=== PATIENT | female | born 1935 | race Caucasian/White ===

== ENCOUNTER 2016-06-20 10:38 | Outpatient (CLI) | payer MEDICARE, OTHER | END 2016-06-20 10:39 | disposition home or self-care (01) | DX: R53.1 Weakness (principal); E03.9 Hypothyroidism, unspecified ==

== ENCOUNTER 2017-04-11 12:17 | Outpatient (CLI) | payer MEDICARE, OTHER | END 2017-04-11 12:18 | disposition home or self-care (01) | LOC: LAB 12:17 | PROVIDERS: ATTEND Internal Medicine | DX: R93.3 Abnormal findings on diagnostic imaging of other parts of digestive tract (principal); K86.2 Cyst of pancreas | CPT/HCPCS: 36415; 82565; 84520 ==

== ENCOUNTER 2017-04-12 08:33 | Outpatient (CLI) | payer MEDICARE, OTHER ==
[2017-04-12] MEDS ORDERED: IOPAMIDOL-300 100 ML VIAL ONE (08:35)
[2017-04-12] MEDS ORDERED: IOPAMIDOL-300 50 ML VIAL ONE (08:35)
[2017-04-12] MEDS ORDERED: IOPAMIDOL-300 50 ML VIAL PO ONE (10:10)
[2017-04-12] MEDS ORDERED: IOPAMIDOL-300 100 ML VIAL IVP ONE (10:10)
--- NOTE | 2017-04-13 16:00 | CT Report ---
EXAM: CT ABDOMEN AND PELVIS EXAM DATE: 04/12/2017 10:10 AM. CLINICAL HISTORY: Pancreatic cyst COMPARISONS: None available. TECHNIQUE: Routine helical CT imaging was performed through the abdomen and pelvis. IV contrast: 100M L OF ISOVUE 300. Enteric contrast: No. Reconstructions: Coronal and sagittal. In accordance with CT protocol optimization, one or more of the following dose reduction techniques w ere utilized for this exam: automated exposure control, adjustment of mA and/or KV based on patient s ize, or use of iterative reconstructive technique. FINDINGS: There is mild motion artifact. Lung Bases: No evidence of focal infiltrate. Normal heart size. Liver: Normal. No masses. Gallbladder/Bile Ducts: The gallbladder is surgically absent. Mild common bile duct dilatation can be within normal limits status post cholecystectomy. Spleen: Normal. Pancreas: There is a focal hypodensity within the uncinate process adjacent to the ampulla. The hypod ensity measures approximately 1.3 x 0.7 cm. Differential considerations include cyst, cystic lesion, or focal pancreatic duct dilatation. There is a 1.0 x 2.5 cm hypodensity at the superior, posterior m argin of the pancreas. This may represent a portacaval lymph node. Adrenal Glands: Normal. Kidneys: The left kidney is atrophic. There is cortical irregularity of the right kidney which probab ly represents scarring. No acute renal abnormalities are seen. Peritoneal Cavity/Bowel: Stomach and small bowel demonstrate no acute abnormalities. There is distal colon diverticulosis. No evidence of diverticulitis. No intraperitoneal free air or free fluid. No en larged mesenteric or retroperitoneal lymph nodes. The appendix is well visualized and normal. Pelvic Organs: Normal. The bladder and visualized pelvic organs are within normal limits. Vasculature: There is a stented abdominal aortic aneurysm. Aneurysm measures 5.2 cm in maximal AP lauren meter. No acute vascular abnormalities are seen. Bones: No significant abnormality. Other: None. IMPRESSION: 1. Detail is somewhat limited secondary to motion artifact. 2. Small uncinate process hypodensity adjacent to the distal common bile duct may represent focal eusebio t dilatation, pancreatic cyst, or small pancreatic cystic lesion. 3. Hypodensity at the posterior margin of the pancreas may represent a portacaval lymph node. 4. Comparison with prior imaging is recommended for further evaluation of the above findings. 5. No acute gastrointestinal tract abnormalities are seen. 6. The left kidney is atrophic. There is cortical irregularity of the right kidney which probably rep resents scarring. [facility] Referring Provider Line: [phone] SITE ID: [id number]
== END 2017-04-12 08:34 | disposition home or self-care (01) ==
LOC: DI 08:33
PROVIDERS: ATTEND Internal Medicine
DX: K86.2 Cyst of pancreas (principal); N26.1 Atrophy of kidney (terminal)
CPT/HCPCS: 74177; Q9967

== ENCOUNTER 2017-05-13 07:50 | Outpatient (CLI) | payer MEDICARE, OTHER ==
[2017-05-13 13:34] LABS: BASOPHILS # (AUTO) 0.1 10^3/uL (0.0-0.1); EOSINOPHILS % (AUTO) 0.9 %; HGB - HEMOGLOBIN 13.4 g/dL (12.0-16.0); LYMPHOCYTES # (AUTO) 1.2 10^3/uL (1.5-3.5); LYMPHOCYTES % (AUTO) 21.8 %; MEAN CORPUSCULAR HEMOGLOBIN 30.7 pg (27.0-31.0); MEAN CORPUSCULAR HGB CONC 34.2 g/dL (32.0-36.0); MEAN CORPUSCULAR VOLUME 89.6 fL (81.0-99.0); MONOCYTES # (AUTO) 0.6 10^3/uL (0.0-1.0); NEUTROPHILS # (AUTO) 3.6 10^3/uL (1.5-6.6); NEUTROPHILS % (AUTO) 65.3 %; PLT - PLATELET COUNT 376 10^3/uL (130-450); RED BLOOD COUNT 4.37 10^6/uL (4.20-5.40); RED CELL DISTRIBUTION WIDTH 13.2 % (12.0-15.0); WHITE BLOOD COUNT 5.5 x10^3/uL (4.8-10.8)
[2017-05-13 13:51] LABS: ALBUMIN 4.1 g/dL (3.2-5.5); ALBUMIN/GLOBULIN RATIO 1.5 (1.0-2.2); ALKALINE PHOSPHATASE 47 IU/L (42-121); ALT ALANINE AMINOTRANSFERASE 19 IU/L (10-60); AST ASPARTATE AMINOTRANSFERASE 20 IU/L (10-42); BILIRUBIN,TOTAL 0.7 mg/dL (0.2-1.0); BUN - BLOOD UREA NITROGEN 16 mg/dL (6-20); CARBON DIOXIDE - CO2 26 mmol/L (21-32); CHLORIDE 91 mmol/L (101-111); CHOL/HDL RATIO 3.4 (<4.4); CHOLESTEROL 238 mg/dL; GFR - MDRD 53 (>89); GLUCOSE 123 mg/dL (70-100); HDL CHOLESTEROL 70 mg/dL; LDL CHOLESTEROL,CALCULATED 144 mg/dL; LDL/HDL RATIO 2.1 (<4.4); SODIUM 127 mmol/L (135-145); TOTAL PROTEIN 6.9 g/dL (6.7-8.2); VLDL CHOLESTEROL 24 mg/dL
[2017-05-13 14:59] LABS: HB2 TOTAL 14.5 g/dL; HEMOGLOBIN A1C 0.74 g/dL; HEMOGLOBIN A1C % 6.8 % (4.6-6.2)
== END 2017-05-13 07:51 | disposition home or self-care (01) ==
LOC: LAB.WCP 07:50
PROVIDERS: ATTEND Family Medicine
DX: I10 Essential (primary) hypertension (principal); E11.9 Type 2 diabetes mellitus without complications; E78.5 Hyperlipidemia, unspecified; E03.9 Hypothyroidism, unspecified
CPT/HCPCS: 36415; 80053; 80061; 82043; 83036; 83721; 84443; 85025

== ENCOUNTER 2017-05-28 11:21 | Outpatient (CLI) | payer MEDICARE, OTHER | END 2017-05-28 11:22 | disposition home or self-care (01) | LOC: DI 11:21 | PROVIDERS: ATTEND Family Medicine | DX: R00.2 Palpitations (principal); I51.7 Cardiomegaly | CPT/HCPCS: 93306 ==

== ENCOUNTER 2018-01-05 07:32 | Outpatient (CLI) | payer MEDICARE, OTHER ==
[2018-01-05 14:45] LABS: HB2 TOTAL 13.3 g/dL; HEMOGLOBIN A1C 0.62 g/dL; HEMOGLOBIN A1C % 6.4 % (4.6-6.2)
[2018-01-05 14:59] LABS: ALBUMIN/GLOBULIN RATIO 1.4 (1.0-2.2); ALKALINE PHOSPHATASE 47 IU/L (42-121); ALT ALANINE AMINOTRANSFERASE 18 IU/L (10-60); AST ASPARTATE AMINOTRANSFERASE 18 IU/L (10-42); BILIRUBIN,TOTAL 0.7 mg/dL (0.2-1.0); BUN - BLOOD UREA NITROGEN 18 mg/dL (6-20); CALCIUM 9.1 mg/dL (8.5-10.3); CARBON DIOXIDE - CO2 26 mmol/L (21-32); CHLORIDE 95 mmol/L (101-111); CHOL/HDL RATIO 3.2 (<4.4); CHOLESTEROL 225 mg/dL; CREATININE 0.9 mg/dL (0.4-1.0); GFR - MDRD 60 (>89); GLUCOSE 139 mg/dL (70-100); HDL CHOLESTEROL 71 mg/dL; LDL CHOLESTEROL,CALCULATED 124 mg/dL; LDL/HDL RATIO 1.7 (<4.4); SODIUM 131 mmol/L (135-145); TOTAL PROTEIN 6.8 g/dL (6.7-8.2); VLDL CHOLESTEROL 30 mg/dL
== END 2018-01-05 07:33 | disposition home or self-care (01) ==
LOC: LAB.WCP 07:32
PROVIDERS: ATTEND Family Medicine
DX: E11.9 Type 2 diabetes mellitus without complications (principal); G25.81 Restless legs syndrome
CPT/HCPCS: 36415; 80053; 80061; 82043; 82728; 83036; 83721

== ENCOUNTER 2018-04-06 11:42 | Outpatient (CLI) | payer MEDICARE, OTHER ==
[2018-04-06 12:10] LABS: CREATININE 0.9 mg/dL (0.4-1.0)
[2018-04-06] MEDS ORDERED: IOVERSOL 320 100 ML VIAL IVP ONE ×2 (12:13→13:01)
--- NOTE | 2018-04-06 13:46 | CT Report ---
Reason: ABDOMINAL AORTIC ANEURYSM Procedure Date: 04/06/2018 Accession Number: [id number] / [id number] Procedure: CT - Abdomen/Pelvis Angio CPT Code: FULL RESULT: EXAM: CT ANGIOGRAM ABDOMEN AND PELVIS WITH CONTRAST EXAM DATE: 04/06/2018 12:45 PM. CLINICAL HISTORY: Abdominal aortic aneurysm. COMPARISONS: ABDOMEN/PELVIS W/ 04/12/2017 10:02 AM. TECHNIQUE: Routine helical CT angiogram imaging was performed through the abdomen and pelvis in the arterial phase. IV contrast: OPTI 320 90mL. Enteric contrast: No. Reconstructions: Coronal, sagittal, and 3D MIP reconstructions. In accordance with CT protocol optimization, one or more of the following dose reduction techniques were utilized for this exam: automated exposure control, adjustment of mA and/or KV based on patient size, or use of iterative reconstructive technique. FINDINGS: Vasculature: Interval decrease of the previously stented abdominal aortic aneurysm with the maximal AP dimension of the aneurysm sac now up to 4.9 cm, previously up to 5.4 cm. The maximal dmeh-cn-usix dimension now is 4.8 cm, previously 5.2 cm. There is no evidence of active endoleak at this time. Lung Bases: Normal. Abdominal Solid Organs: Status post cholecystectomy. The liver, spleen, pancreas, adrenal glands and kidneys are normal in size and demonstrate no masses or abnormal enhancement. Peritoneal Cavity: Normal. No free fluid, free air, or acute inflammatory process. Pelvic Organs: Normal. The bladder and visualized pelvic organs are within normal limits. Bones: No significant abnormality. Other: Small fat-containing umbilical hernia. IMPRESSION: Interval decrease in size of aneurysm sac with no endoleak. [facility]
== END 2018-04-06 11:43 | disposition home or self-care (01) ==
LOC: LAB 11:42 → DI 11:43
PROVIDERS: ATTEND Family Medicine
DX: I71.4 Abdominal aortic aneurysm, without rupture (principal)
CPT/HCPCS: 36415; 74174; 82565; Q9967

== ENCOUNTER 2018-05-05 17:42 | Outpatient (CLI) | payer MEDICARE, OTHER | END 2018-05-05 17:43 | disposition short-term general hospital (02) | LOC: EMS 17:42 | PROVIDERS: ATTEND Surgery | DX: R07.9 Chest pain, unspecified (principal) | CPT/HCPCS: A0425; A0427 ==

== ENCOUNTER 2018-07-08 13:01 | Outpatient (CLI) | payer MEDICARE, OTHER ==
--- NOTE | 2018-07-08 15:17 | Ultrasound Report ---
Reason: CAROTID ARTERIAL DISEASE,PERIPHERAL ARTERY DISEASE Procedure Date: 07/08/2018 Accession Number: [id number] / [id number] Procedure: US - Carotid Doppler Complete CPT Code: FULL RESULT: EXAM: BILATERAL CAROTID AND VERTEBRAL ARTERY DUPLEX DOPPLER ULTRASOUND. EXAM DATE: 07/08/2018 01:16 PM CLINICAL HISTORY: Carotid arterial disease, peripheral artery disease. COMPARISON: None. TECHNIQUE: Grayscale imaging, color Doppler, and duplex spectral Doppler were used to evaluate the carotid and vertebral arteries bilaterally. Static images were obtained. FINDINGS: Visually, there is mild intimal thickening in both carotid systems with minimal plaque at the bifurcations. No significant plaque is identified in the right or left common or internal carotid arteries. Normal antegrade flow is present in bilateral vertebral arteries. VELOCITIES (cm/sec): Right CCA mid: PSV 95.7 cm/sec CCA dist: PSV 79.7 cm/sec ICA prox: PSV 51.2 cm/sec, EDV 15 cm/sec ICA mid: PSV 44.5 cm/sec, EDV 14 cm/sec ICA dist: PSV 49 cm/sec, EDV 14 cm/sec ECA: PSV 58 cm/sec Vert: PSV 64 cm/sec ICA/CCA: 0.6 Left CCA mid: PSV 90.7 cm/sec CCA dist: PSV 80.1 cm/sec ICA prox: PSV 53.7 cm/sec, EDV 18 cm/sec ICA mid: PSV 48.6 cm/sec, EDV 14 cm/sec ICA dist: PSV 43 cm/sec, EDV 12 cm/sec ECA: PSV 70 cm/sec Vert: PSV 45 cm/sec ICA/CCA: 0.7 ICA diameter stenosis: Right: <50% by velocity and <70% by NASCET criteria. Left: <50% by velocity and <70% by NASCET criteria. IMPRESSION: 1. No significant bilateral carotid artery plaquing. 2. In the right carotid artery there are no elevated carotid artery velocities to suggest hemodynamically significant stenosis. 3. In the left carotid artery there are no elevated carotid artery velocities to suggest hemodynamically significant stenosis. 4. Normal antegrade flow is present in bilateral vertebral arteries. General Recommendations: Stenosis =50% ICA - Follow-up ultrasound 6-12 months Stenosis <50% ICA - High Risk Patient with plaque - Follow-up ultrasound 1-2 years Normal Study but High Risk Patient - Follow-up ultrasound 3-5 years Management recommendations and diagnostic criteria are based on current IAC endorsed standards in Carotid Artery Stenosis: Grayscale and Doppler Ultrasound Diagnosis. Validated velocity measurements with angiographic measurements and velocity criteria are extrapolated from diameter data as defined by the Society of Radiologists in Ultrasound Consensus Conference Radiology 2003; 229;340-346. [facility]
--- NOTE | 2018-07-08 15:36 | Ultrasound Report ---
Reason: CAROTID ARTERIAL DISEASE,PERIPHERAL ARTERY DISEASE Procedure Date: 07/08/2018 Accession Number: [id number] / [id number] Procedure: US - Duplex Lwr Ext Arterial Bilat CPT Code: FULL RESULT: EXAM: Bilateral Lower Extremity Arterial Doppler Ultrasound EXAM DATE: 07/08/2018 02:32 PM. CLINICAL HISTORY: Carotid arterial disease, peripheral artery disease. COMPARISON: None. TECHNIQUE: Real-time sonographic vascular imaging was performed by the soubrette, utilizing color-flow, Doppler flow, and spectral analysis. Multiple advertising sales representative static images were saved for review. FINDINGS: Visually, there is focal echogenic and hypoechoic plaque occupying approximately 50% of the lumen in the right common femoral artery. Focal atherosclerotic disease is also seen in the right distal SFA, visually less than 50% narrowing at the interrogated segments. Focal echogenic atherosclerotic disease is seen at the takeoff of the left SFA and within the left FRIT MIXER AND BURNER, less than 50% visually. Brisk arterial upstrokes are preserved throughout the interrogated right lower extremity and left lower extremity. Velocities: Right Lower Extremity: FRIT MIXER AND BURNER: PSV 107 cm/sec. PSFA: PSV 103 cm/sec. MSFA: PSV 55 cm/sec. DSFA: PSV 82 cm/sec. PFA: PSV 96.5 cm/sec. POP: PSV 34 cm/sec. TEAGAN: PSV 65 cm/sec. STRAP BUCKLER MACHINE: PSV 40 cm/sec. ROULA: PSV 48 cm/sec. DPA: PSV 80 cm/sec. Left Lower Extremity: FRIT MIXER AND BURNER: PSV 57 cm/sec. PSFA: PSV 52 cm/sec. MSFA: PSV 64 cm/sec. DSFA: PSV 75 cm/sec. PFA: PSV 30 cm/sec. POP: PSV 40 cm/sec. TEAGAN: PSV 56 cm/sec. STRAP BUCKLER MACHINE: PSV 23 cm/sec. ROULA: PSV 36 cm/sec. DPA: PSV 69 cm/sec. IMPRESSION: Peripheral arterial disease with preserved 3-vessel flow to both ankles and good vascular supply to the dorsalis pedis arteries. No evidence of tardus parvus flow. [facility]
== END 2018-07-08 13:02 | disposition home or self-care (01) ==
LOC: DI 13:01
PROVIDERS: ATTEND Family Medicine
DX: I73.9 Peripheral vascular disease, unspecified (principal); I77.9 Disorder of arteries and arterioles, unspecified
CPT/HCPCS: 93880; 93925

== ENCOUNTER 2018-12-11 08:00 | Outpatient (CLI) | payer MEDICARE, OTHER | END 2018-12-11 08:01 | disposition home or self-care (01) | LOC: LAB.WCP 08:00 | PROVIDERS: ATTEND Family Medicine | DX: R35.0 Frequency of micturition (principal) | CPT/HCPCS: 81002 ==

== ENCOUNTER 2019-03-11 08:00 | Outpatient (CLI) | payer MEDICARE, OTHER | END 2019-03-11 23:59 | disposition home or self-care (01) | LOC: LAB.WCP 08:00 | PROVIDERS: ATTEND Family Medicine | DX: R30.0 Dysuria (principal) | CPT/HCPCS: 81002 ==

== ENCOUNTER 2019-03-12 08:00 | Outpatient (CLI) | payer MEDICARE, OTHER | END 2019-03-12 23:59 | disposition home or self-care (01) | LOC: LAB.R 08:00 | PROVIDERS: ATTEND Family Medicine | DX: R30.0 Dysuria (principal) | CPT/HCPCS: 87086; 87181 ==

== ENCOUNTER → 2019-03-31 | Outpatient (CLI) | payer MEDICARE, OTHER ==
[2019-03-31 18:56] LABS: BASOPHILS # (AUTO) 0.1 10^3/uL (0.0-0.1); BASOPHILS % (AUTO) 1.2 %; EOSINOPHILS % (AUTO) 0.6 %; HGB - HEMOGLOBIN 13.9 g/dL (12.0-16.0); LYMPHOCYTES # (AUTO) 1.3 10^3/uL (1.5-3.5); LYMPHOCYTES % (AUTO) 19.3 %; MEAN CORPUSCULAR HGB CONC 31.7 g/dL (32.0-36.0); MEAN CORPUSCULAR VOLUME 91.5 fL (81.0-99.0); MEAN PLATELET VOLUME 9.7 fL (7.9-10.8); MONOCYTES # (AUTO) 0.6 10^3/uL (0.0-1.0); MONOCYTES % (AUTO) 8.7 %; NEUTROPHILS # (AUTO) 4.6 10^3/uL (1.5-6.6); NEUTROPHILS % (AUTO) 69.7 %; PLT - PLATELET COUNT 511 10^3/uL (130-450); RED CELL DISTRIBUTION WIDTH 13.7 % (12.0-15.0); WHITE BLOOD COUNT 6.5 x10^3/uL (4.8-10.8)
[2019-03-31 19:14] LABS: ALBUMIN 4.4 g/dL (3.2-5.5); ALBUMIN/GLOBULIN RATIO 1.5 (1.0-2.2); ALKALINE PHOSPHATASE 47 IU/L (42-121); ALT ALANINE AMINOTRANSFERASE 20 IU/L (10-60); AST ASPARTATE AMINOTRANSFERASE 20 IU/L (10-42); BILIRUBIN,TOTAL 0.5 mg/dL (0.2-1.0); BUN - BLOOD UREA NITROGEN 16 mg/dL (6-20); CARBON DIOXIDE - CO2 24 mmol/L (21-32); CHLORIDE 97 mmol/L (101-111); CHOL/HDL RATIO 3.1 (<4.4); CHOLESTEROL 254 mg/dL; CREATININE 0.9 mg/dL (0.4-1.0); GFR - MDRD 60 (>89); GLUCOSE 112 mg/dL (70-100); HDL CHOLESTEROL 81 mg/dL; LDL CHOLESTEROL,CALCULATED 129 mg/dL; LDL/HDL RATIO 1.6 (<4.4); LIPASE 57 U/L (22-51); SODIUM 133 mmol/L (135-145); TOTAL PROTEIN 7.4 g/dL (6.7-8.2); VLDL CHOLESTEROL 44 mg/dL
[2019-03-31 20:09] LABS: HB2 TOTAL 14.1 g/dL; HEMOGLOBIN A1C 0.73 g/dL; HEMOGLOBIN A1C % 6.9 % (4.6-6.2)
== END ==
LOC: LAB.WCP 10:28
PROVIDERS: ATTEND Family Medicine
DX: K86.2 Cyst of pancreas (principal); E11.9 Type 2 diabetes mellitus without complications
CPT/HCPCS: 36415; 80053; 80061; 83036; 83690; 83721; 84443; 85025

== ENCOUNTER 2019-04-19 10:38 | Outpatient (CLI) | payer MEDICARE, OTHER ==
[2019-04-19] MEDS ORDERED: IOVERSOL 320 100 ML VIAL IVP ONE ×2 (10:52→12:08)
--- NOTE | 2019-04-20 05:18 | CT Report ---
Reason: PANCREATIC CYST Procedure Date: 04/19/2019 Accession Number: [id number] / [id number] Procedure: CT - ABDOMEN W/WO CPT Code: Final Report FULL RESULT: EXAM: CT ABDOMEN WITHOUT AND WITH CONTRAST EXAM DATE: 04/19/2019 11:46 AM. HISTORY: PANCREATIC CYST. COMPARISON: ABDOMEN/PELVIS ANGIO 04/06/2018 12:05 PM ABDOMEN/PELVIS W/ 04/12/2017 10:02 AM. TECHNIQUE: Routine helical CT imaging was performed through the abdomen before and after administration of IV contrast: OPTI 320 100ML. Enteric contrast: No. Reconstruction: Coronal and sagittal. In accordance with CT protocol optimization, one or more of the following dose reduction techniques were utilized for this exam: automated exposure control, adjustment of mA and/or KV based on patient size, or use of iterative reconstructive technique. FINDINGS: Lung Bases: Unremarkable. Liver: Normal. No masses. Gallbladder/Bile Ducts: Cholecystectomy. CBD measures up to 12 mm. Spleen: Normal. Pancreas: Nonenhancing cystic structure along the posterior aspect of pancreatic head measuring up to approximately 2 cm. No additional pancreatic lesions identified. No ductal obstruction. Adrenal Glands: Normal. Kidneys: Lobulated kidneys with scarring, most prominent at left lower pole. No hydronephrosis. Peritoneal Cavity/Bowel: Small hiatal hernia. Colonic diverticula. No free fluid, free air or adenopathy. No masses or acute inflammatory process in the visualized abdomen. Visualized portion of appendix is unremarkable. Vasculature: Atherosclerotic vascular disease with infrarenal abdominal aortic aneurysm status post endovascular repair. Aneurysm sac measures up to 4.6 cm on coronal images, similar to prior. Bones: No acute osseous abnormality. Other: None. IMPRESSION: 1. Pancreatic head cystic structure measuring up to 2 cm, similar compared to prior imaging. This could be pancreatic cyst or cystic neoplasm. Follow-up MRI can be performed to reassess. 2. Cholecystectomy with stable biliary dilation. 3. Atherosclerotic vascular disease with infrarenal abdominal aortic aneurysm status post endovascular repair. No interval growth of aneurysm sac. 4. Atrophic kidneys with scarring, more prominent on left than right. [facility]
== END 2019-04-19 10:39 | disposition home or self-care (01) ==
LOC: DI 10:38
PROVIDERS: ATTEND Family Medicine
DX: K86.2 Cyst of pancreas (principal); I71.4 Abdominal aortic aneurysm, without rupture; N26.1 Atrophy of kidney (terminal); Z90.49 Acquired absence of other specified parts of digestive tract
CPT/HCPCS: 74170; Q9967

== ENCOUNTER 2019-07-27 10:15 | Outpatient (CLI) | payer MEDICARE, OTHER | END 2019-07-27 10:16 | disposition critical access hospital (66) | LOC: EMS 10:15 | PROVIDERS: ATTEND Surgery | DX: R42 Dizziness and giddiness (principal); R61 Generalized hyperhidrosis | CPT/HCPCS: A0425; A0429 ==

== ENCOUNTER 2019-07-27 10:34 | Emergency (ER) | payer MEDICARE, OTHER ==
--- NOTE | 2019-07-27 11:31 | ED Physician Documentation ---
History of Present Illness - Stated complaint Stated Complaint: SHAKEY/NAUSEA - Chief complaint Chief Complaint: Ext Problem - History obtained from History obtained from: Patient - History of Present Illness Timing: Last night - Additonal information Additional information: Previously well 83-year-old female on Eliquis has developed some swelling to the veins in her right leg some heaviness to her legs some lightheadedness and nausea. She spent a good part of the day yesterday out in the garden, probably longer than she should have. She is uncertain about her hydration status. She has had blood clots in her lungs previously. She has an aortic stent. Review of Systems Constitutional: reports: Fatigue. denies: Fever, Chills, Myalgias Eyes: denies: Decreased vision Ears: denies: Ear pain Nose: denies: Rhinorrhea / runny nose, Congestion Throat: denies: Sore throat Cardiac: denies: Chest pain / pressure, Palpitations Respiratory: denies: Dyspnea, Cough GI: reports: Nausea. denies: Abdominal Pain, Vomiting : denies: Dysuria, Frequency Skin: denies: Rash Musculoskeletal: reports: Extremity pain, Extremity swelling. denies: Neck pain, Back pain Neurologic: reports: Generalized weakness. denies: Focal weakness, Numbness PD PAST MEDICAL HISTORY - Past Medical History Past Medical History: Yes Cardiovascular: Hypertension, Pulmonary embolism, [place] Endocrine/Autoimmune: Type 2 diabetes, HyPOthyroidism GI: GERD - Past Surgical History Past Surgical History: Yes General: Cholecystectomy Cardiovascular: Coronary stent - Present Medications Home Medications: Ambulatory Orders Medication Instructions Recorded Confirmed Sulfamethoxazole/Trimethoprim 1 each PO BID #14 tablet 07/27/19 [Sulfamethoxazole-Tmp Ds Tablet] - Allergies Allergies/Adverse Reactions: Allergies Allergy/AdvReac Type Severity Reaction Status Date / Time No Known Drug Allergies Allergy Verified 07/27/19 10:44 - Social History Does the pt smoke?: No Smoking Status: Never smoker Does the pt drink ETOH?: No Does the pt have substance abuse?: No - Immunizations Immunizations are current?: Yes PD ED PE NORMAL - Vitals Vital signs reviewed: Yes (hypertensive) - General General: Alert and oriented X 3, No acute distress, Well developed/nourished - HEENT HEENT: Atraumatic, PERRL, EOMI - Neck Neck: Supple, no meningeal sign - Cardiac Cardiac: RRR, No murmur - Respiratory Respiratory: No respiratory distress, Clear bilaterally - Abdomen Abdomen: Soft, Non tender - Back Back: No CVA TTP, No spinal TTP - Derm Derm: Normal color, Warm and dry, No rash - Extremities Extremities: No deformity, No edema, Other (There is no right calf tenderness there are distended superficial veins in the calf. There is no edema the right leg is slightly larger than the left leg.) - Neuro Neuro: Alert and oriented X 3, psychotherapist social worker 2-12 intact, No motor deficit, No sensory deficit, Normal speech Eye Opening: Spontaneous Motor: Obeys Commands Verbal: Oriented GCS Score: 15 - Psych Psych: Normal mood, Normal affect Results - Vitals Vitals: Vital Signs - 24 hr 07/27/19 07/27/19 07/27/19 10:44 11:49 13:32 Temperature 36.9 C Heart Rate 94 74 78 Respiratory 16 18 15 Rate Blood Pressure 193/89 H 144/62 H 155/68 H O2 Saturation 96 97 97 Oxygen O2 Source Room air - Labs Labs: Laboratory Tests 07/27/19 07/27/19 07/27/19 11:40 11:40 11:40 WBC 7.2 RBC 4.71 Hgb 14.3 Hct 42.8 MCV 90.9 MCH 30.4 MCHC 33.4 RDW 13.3 Plt Count 411 MPV 9.2 Neut # (Auto) 5.7 Lymph # (Auto) 0.9 L Saunders # (Auto) 0.5 Eos # (Auto) 0.0 Baso # (Auto) 0.1 Absolute Nucleated RBC 0.00 Nucleated RBC % 0.0 Sodium 132 L Potassium 4.7 Chloride 99 L Carbon Dioxide 24 Anion Gap 9.0 BUN 22 H Creatinine 1.0 Estimated GFR (MDRD) 53 L Glucose 128 H Lactic Acid 1.4 Calcium 9.2 Total Bilirubin 0.8 AST 18 ALT 21 Alkaline Phosphatase 52 Total Protein 7.4 Albumin 4.1 Globulin 3.3 Albumin/Globulin Ratio 1.2 Lipase 50 Urine Color Urine Clarity Urine pH Ur Specific Dana Urine Protein Urine Glucose (UA) Urine Ketones Urine Occult Blood Urine Nitrite Urine Bilirubin Urine Urobilinogen Ur Leukocyte Esterase Urine RBC Urine WBC Ur Squamous Epith Cells Urine Bacteria Ur Microscopic Review Urine Culture Comments 07/27/19 11:55 WBC RBC Hgb Hct MCV MCH MCHC RDW Plt Count MPV Neut # (Auto) Lymph # (Auto) Saunders # (Auto) Eos # (Auto) Baso # (Auto) Absolute Nucleated RBC Nucleated RBC % Sodium Potassium Chloride Carbon Dioxide Anion Gap BUN Creatinine Estimated GFR (MDRD) Glucose Lactic Acid Calcium Total Bilirubin AST ALT Alkaline Phosphatase Total Protein Albumin Globulin Albumin/Globulin Ratio Lipase Urine Color YELLOW Urine Clarity HAZY Urine pH 6.0 Ur Specific Dana 1.010 Urine Protein NEGATIVE Urine Glucose (UA) NEGATIVE Urine Ketones NEGATIVE Urine Occult Blood NEGATIVE Urine Nitrite NEGATIVE Urine Bilirubin NEGATIVE Urine Urobilinogen 0.2 (NORMAL) Ur Leukocyte Esterase LARGE H Urine RBC 0-5 Urine WBC >25 H Ur Squamous Epith Cells RARE Squamous Urine Bacteria Few Ur Microscopic Review INDICATED Urine Culture Comments INDICATED - Rads (name of study) duplex veins R Radiology: Prelim report reviewed (Impression: No evidence for deep venous thrombosis.), EMP read indepedently, See rad report Procedures - IVC sono (time) 1120 Bedside IVC sono: IVC measures (cm) (1.49), IVC collapsed c insp (cm) (complete), Dehydration (minimal est 500ml deficit) PD MEDICAL DECISION MAKING - ED course Complexity details: reviewed old records, reviewed results, re-evaluated patient, considered differential, d/w patient ED course: 83-year-old male on Eliquis with a history of pulmonary embolism comes to the emergency department today feeling lightheaded shaky and with distended leg veins on the right. She spent the day out in the garden yesterday and is found to be mildly dehydrated on interrogation the inferior vena cava. She is provided intravenous hydration and urinary tract infection is discovered she is also given intravenous ceftriaxone and she has no evidence of deep venous thrombosis on duplex ultrasound exam. Departure - Departure Disposition: 01 Home, Self Care Clinical Impression: Dehydration Urinary tract infection Qualifiers: Urinary tract infection type: acute cystitis Hematuria presence: without hematuria Qualified Code(s): N30.00 - Acute cystitis without hematuria Condition: Stable Instructions: ED UTI Cystitis Female, ED Dehydration Follow-Up: Kirstie Powers DO [Primary Care Provider] - Prescriptions: Sulfamethoxazole/Trimethoprim [Sulfamethoxazole-Tmp Ds Tablet] 1 each PO BID #14 tablet
[2019-07-27] MEDS: SODIUM CHLORIDE 0.9% 500 ML IV ONE (11:40)
[2019-07-27 11:46] LABS: BASOPHILS # (AUTO) 0.1 10^3/uL (0.0-0.1); BASOPHILS % (AUTO) 0.8 %; EOSINOPHILS % (AUTO) 0.4 %; HGB - HEMOGLOBIN 14.3 g/dL (12.0-16.0); LYMPHOCYTES # (AUTO) 0.9 10^3/uL (1.5-3.5); MEAN CORPUSCULAR HEMOGLOBIN 30.4 pg (27.0-31.0); MEAN CORPUSCULAR HGB CONC 33.4 g/dL (32.0-36.0); MEAN CORPUSCULAR VOLUME 90.9 fL (81.0-99.0); MEAN PLATELET VOLUME 9.2 fL (7.9-10.8); MONOCYTES # (AUTO) 0.5 10^3/uL (0.0-1.0); MONOCYTES % (AUTO) 7.3 %; NEUTROPHILS # (AUTO) 5.7 10^3/uL (1.5-6.6); NEUTROPHILS % (AUTO) 78.9 %; PLT - PLATELET COUNT 411 10^3/uL (130-450); RED BLOOD COUNT 4.71 10^6/uL (4.20-5.40); RED CELL DISTRIBUTION WIDTH 13.3 % (12.0-15.0); WHITE BLOOD COUNT 7.2 x10^3/uL (4.8-10.8)
[2019-07-27 12:00] LABS: ALBUMIN 4.1 g/dL (3.2-5.5); ALBUMIN/GLOBULIN RATIO 1.2 (1.0-2.2); BILIRUBIN,TOTAL 0.8 mg/dL (0.2-1.0); CALCIUM 9.2 mg/dL (8.5-10.3); TOTAL PROTEIN 7.4 g/dL (6.7-8.2)
[2019-07-27 12:06] LABS: BILIRUBIN,URINE NEGATIVE (NEGATIVE); GLUCOSE, URINE (UA) NEGATIVE (NEGATIVE); KETONES,URINE (UA) NEGATIVE (NEGATIVE); LEUKOCYTE ESTERASE, URINE LARGE (NEGATIVE); NITRITE,URINE NEGATIVE (NEGATIVE); OCCULT BLOOD,URINE NEGATIVE (NEGATIVE); PROTEIN,URINE NEGATIVE (NEGATIVE); UROBILINOGEN,URINE 0.2 (NORMAL) E.U./dL (NORMAL)
[2019-07-27 12:07] LABS: CLARITY,URINE HAZY (CLEAR)
[2019-07-27 12:20] LABS: BACTERIA,URINE Few /HPF (None Seen); RBC,URINE 0-5 /HPF (0-5); SQUAMOUS EPITHELIAL CELL,UR RARE Squamous (<= Few)
[2019-07-27] MEDS: cefTRIAXone 1 GM in SODIUM CHLORIDE 0.9% MINIBAG 100 ML IV STA (12:52)
--- NOTE | 2019-07-27 12:56 | Ultrasound Report ---
Reason: heavy legs buldging veins. Procedure Date: 07/27/2019 Accession Number: [id number] / [id number] Procedure: US - Duplex Ext Veins Right CPT Code: Final Report FULL RESULT: EXAM: RIGHT LOWER EXTREMITY VENOUS ULTRASOUND EXAM DATE: 07/27/2019 12:32 PM. CLINICAL HISTORY: Heavy legs bulging veins. COMPARISON: None. TECHNIQUE: Real-time sonographic vascular imaging was performed by the investment sales assistant through the lower extremity utilizing both color-flow and Doppler spectral analysis. Multiple civil rights representative static images were saved for review. FINDINGS: Common Femoral Vein (CFV): Normal. CFV-GSV Junction: Normal. Profunda Femoral Vein (PFV): Normal. Femoral Vein (FV) Prox: Normal. Femoral Vein (FV) Mid: Normal. Femoral Vein (FV) Dist: Normal. Popliteal Vein: Normal. Posterior Tibial Veins: Normal. Peroneal Veins: Normal. Contralateral Side CFV: Normal. Other: None. IMPRESSION: No evidence for deep venous thrombosis. [facility]
[2019-07-27 14:03] VITALS: BP 148/72
== END 2019-07-27 14:05 | disposition home or self-care (01) ==
LOC: EDUNIT# → ED 10:34
DX: E86.0 Dehydration (principal); N30.00 Acute cystitis without hematuria; I87.8 Other specified disorders of veins; Z86.711 Personal history of pulmonary embolism; Z79.01 Long term (current) use of anticoagulants; I10 Essential (primary) hypertension; E11.9 Type 2 diabetes mellitus without complications; Z95.5 Presence of coronary angioplasty implant and graft
CPT/HCPCS: 36415; 80053; 81001; 81003; 83605; 83690; 85025; 87086; 87181; 96365; 99284

== ENCOUNTER 2019-10-26 11:41 | Outpatient (CLI) | payer MEDICARE, OTHER ==
[2019-10-26 18:39] LABS: BASOPHILS # (AUTO) 0.1 10^3/uL (0.0-0.1); BASOPHILS % (AUTO) 0.9 %; EOSINOPHILS % (AUTO) 0.5 %; HGB - HEMOGLOBIN 13.3 g/dL (12.0-16.0); LYMPHOCYTES # (AUTO) 1.4 10^3/uL (1.5-3.5); LYMPHOCYTES % (AUTO) 21.5 %; MEAN CORPUSCULAR HEMOGLOBIN 29.1 pg (27.0-31.0); MEAN CORPUSCULAR HGB CONC 31.5 g/dL (32.0-36.0); MEAN CORPUSCULAR VOLUME 92.3 fL (81.0-99.0); MEAN PLATELET VOLUME 9.6 fL (7.9-10.8); MONOCYTES # (AUTO) 0.6 10^3/uL (0.0-1.0); MONOCYTES % (AUTO) 9.7 %; NEUTROPHILS # (AUTO) 4.3 10^3/uL (1.5-6.6); NEUTROPHILS % (AUTO) 67.1 %; PLT - PLATELET COUNT 427 10^3/uL (130-450); RED BLOOD COUNT 4.57 10^6/uL (4.20-5.40); RED CELL DISTRIBUTION WIDTH 13.7 % (12.0-15.0); WHITE BLOOD COUNT 6.4 x10^3/uL (4.8-10.8)
[2019-10-26 19:02] LABS: ALBUMIN 4.3 g/dL (3.2-5.5); ALBUMIN/GLOBULIN RATIO 1.4 (1.0-2.2); ALKALINE PHOSPHATASE 45 IU/L (42-121); ALT ALANINE AMINOTRANSFERASE 20 IU/L (10-60); AST ASPARTATE AMINOTRANSFERASE 18 IU/L (10-42); BILIRUBIN,TOTAL 0.4 mg/dL (0.2-1.0); BUN - BLOOD UREA NITROGEN 14 mg/dL (6-20); CALCIUM 9.4 mg/dL (8.5-10.3); CARBON DIOXIDE - CO2 26 mmol/L (21-32); CHLORIDE 95 mmol/L (101-111); CHOL/HDL RATIO 3.1 (<4.4); CHOLESTEROL 258 mg/dL; CREATININE 0.9 mg/dL (0.4-1.0); GLUCOSE 116 mg/dL (70-100); HDL CHOLESTEROL 84 mg/dL; LDL CHOLESTEROL,CALCULATED 153 mg/dL; LDL/HDL RATIO 1.8 (<4.4); SODIUM 128 mmol/L (135-145); TOTAL PROTEIN 7.4 g/dL (6.7-8.2); VLDL CHOLESTEROL 21 mg/dL
[2019-10-26 19:32] LABS: HEMOGLOBIN A1C 0.68 g/dL; HEMOGLOBIN A1C % 6.6 % (4.6-6.2)
== END 2019-10-26 23:59 | disposition home or self-care (01) ==
LOC: LAB.WCP 11:41
PROVIDERS: ATTEND Family Medicine
DX: E11.9 Type 2 diabetes mellitus without complications (principal)
CPT/HCPCS: 36415; 80053; 80061; 82607; 83036; 83721; 85025

== ENCOUNTER 2020-02-28 08:32 | Outpatient (CLI) | payer MEDICARE, OTHER ==
[2020-02-28 12:54] LABS: BASOPHILS # (AUTO) 0.1 10^3/uL (0.0-0.1); BASOPHILS % (AUTO) 1.1 %; EOSINOPHILS # (AUTO) 0.1 10^3/uL (0.0-0.7); EOSINOPHILS % (AUTO) 0.8 %; HGB - HEMOGLOBIN 13.6 g/dL (12.0-16.0); LYMPHOCYTES # (AUTO) 1.2 10^3/uL (1.5-3.5); MEAN CORPUSCULAR HEMOGLOBIN 29.1 pg (27.0-31.0); MEAN CORPUSCULAR HGB CONC 31.7 g/dL (32.0-36.0); MEAN CORPUSCULAR VOLUME 91.7 fL (81.0-99.0); MEAN PLATELET VOLUME 9.8 fL (7.9-10.8); MONOCYTES # (AUTO) 0.7 10^3/uL (0.0-1.0); MONOCYTES % (AUTO) 9.6 %; NEUTROPHILS # (AUTO) 5.2 10^3/uL (1.5-6.6); PLT - PLATELET COUNT 425 10^3/uL (130-450); RED BLOOD COUNT 4.68 10^6/uL (4.20-5.40); RED CELL DISTRIBUTION WIDTH 13.8 % (12.0-15.0); WHITE BLOOD COUNT 7.3 x10^3/uL (4.8-10.8)
[2020-02-28 13:08] LABS: ALBUMIN 4.3 g/dL (3.2-5.5); ALBUMIN/GLOBULIN RATIO 1.5 (1.0-2.2); BILIRUBIN,TOTAL 0.6 mg/dL (0.2-1.0); CALCIUM 9.1 mg/dL (8.5-10.3); TOTAL PROTEIN 7.1 g/dL (6.7-8.2)
[2020-02-28 14:50] LABS: HEMOGLOBIN A1c% 6.6 % (4.27-6.07)
== END 2020-02-28 23:59 | disposition home or self-care (01) ==
LOC: LAB.WCP 08:32
PROVIDERS: ATTEND Family Medicine
DX: E87.1 Hypo-osmolality and hyponatremia (principal); E11.9 Type 2 diabetes mellitus without complications
CPT/HCPCS: 36415; 80053; 83036; 83930; 83935; 84300; 84443; 85025

== ENCOUNTER 2020-03-26 09:25 | Outpatient (CLI) | payer MEDICARE, OTHER ==
--- NOTE | 2020-03-26 15:45 | Ultrasound Report ---
PROCEDURE: Retroperitoneal Limited INDICATIONS: AAA 6.2 TECHNIQUE: Real-time scanning was performed of the abdominal aorta, with image documentation. COMPARISON: CTA 04/19/2019. FINDINGS: Technically difficult exam due to acoustic windows and body habitus. Aorta: Post aortoiliac stent graft repair. The stents appear patent. Proximal aorta measures 2.6 cm. Mid aorta measures 3.8 x 3.5 cm. Distal aorta measures 6.8 x 5 cm. Iliac arteries: Right ANGELA measures 1.8 x 1.5 cm. Left ANGELA measures 2 x 1.9 cm. IMPRESSION: Post aortoiliac stent graft repair. Stent appears patent. Distal aortic aneurysm sac measures up to 6.8 cm. Reviewed by: Tim Garcia MD on 03/26/2020 2:44 PM [place] Approved by: Tmi Garcia MD on 03/26/2020 2:44 PM [facility] Station ID: [id number]
== END 2020-03-26 09:26 | disposition home or self-care (01) ==
LOC: DI 09:25
PROVIDERS: ATTEND Nurse Practitioner
DX: I71.4 Abdominal aortic aneurysm, without rupture (principal)

== ENCOUNTER 2020-06-10 18:14 | Outpatient (CLI) | payer MEDICARE, OTHER | END 2020-06-10 18:15 | disposition critical access hospital (66) | LOC: EMS 18:14 | PROVIDERS: ATTEND Emergency Medicine | DX: R42 Dizziness and giddiness (principal); R53.1 Weakness; R55 Syncope and collapse | CPT/HCPCS: A0425; A0429 ==

== ENCOUNTER 2020-06-10 18:30 | Emergency (ER) | payer MEDICARE, OTHER ==
--- NOTE | 2020-06-10 19:12 | ED Physician Documentation ---
History of Present Illness - Stated complaint Stated Complaint: dizziness - Chief complaint Chief Complaint: Neuro - History obtained from History obtained from: Patient - History of Present Illness Timing: Enter time (15:00), Today Pain level max: 0 Pain level now: 0 Improved by: rest Worsened by: standing, ambulating - Additonal information Additional information: At approximately 3 PM today, as she was entering her house after raking leaves in her yard, patient had rapid onset lightheadedness, "that feeling like when you're going to pass out", generalized weakness. She says she has had similar symptoms in the past but milder and self-resolved and thus hasn't seen anyone for these symptoms before tonight. Review of Systems Constitutional: denies: Fever, Chills, Sweats Cardiac: reports: Reviewed and negative Respiratory: reports: Reviewed and negative GI: reports: Reviewed and negative : denies: Dysuria, Frequency Neurologic: reports: Generalized weakness (episodic (with standing, ambulating)). denies: Focal weakness, Numbness, Syncope, Headache PD PAST MEDICAL HISTORY - Past Medical History Past Medical History: Yes Cardiovascular: Hypertension, Pulmonary embolism, [place] Endocrine/Autoimmune: Type 2 diabetes, HyPOthyroidism GI: GERD - Past Surgical History Past Surgical History: Yes General: Cholecystectomy Cardiovascular: Coronary stent - Present Medications Home Medications: Ambulatory Orders Medication Instructions Recorded Confirmed Apixaban [Eliquis] 5 mg PO DAILY 06/10/20 06/10/20 Levothyroxine [Synthroid] 75 mcg PO DAILY 06/10/20 06/10/20 Losartan [Cozaar] 100 mg PO DAILY 06/10/20 06/10/20 Pramipexole [Mirapex] 0.25 mg PO TID 06/10/20 06/10/20 metFORMIN [Glucophage] 500 mg PO BID 06/10/20 06/10/20 - Allergies Allergies/Adverse Reactions: Allergies Allergy/AdvReac Type Severity Reaction Status Date / Time gluten Allergy Unknown Verified 06/10/20 18:46 lactose Allergy Unknown Verified 06/10/20 18:46 lisinopril Allergy Unknown Verified 06/10/20 18:46 Qlmsdwe-Zbm-Xol Reductase Allergy Unknown Verified 06/10/20 18:46 Inhibitor wheat Allergy Unknown Verified 06/10/20 18:46 - Social History Does the pt smoke?: No Smoking Status: Never smoker Does the pt drink ETOH?: No ETOH Use: Wine Does the pt have substance abuse?: Yes Substance Use and Type: Marijuana, CBD oil / Products - Immunizations Immunizations are current?: Yes - POLST Patient has POLST: No PD ED PE NORMAL - Vitals Vital signs reviewed: Yes - General General: Alert and oriented X 3, No acute distress, Well developed/nourished - HEENT HEENT: PERRL, EOMI, Moist mucous membranes - Neck Neck: Supple, no meningeal sign, No bruit - Cardiac Cardiac: RRR, No murmur, No gallop, No rub - Respiratory Respiratory: No respiratory distress, Clear bilaterally - Abdomen Abdomen: Soft, Non tender, Non distended - Back Back: No CVA TTP - Derm Derm: Normal color, Warm and dry - Neuro Neuro: Alert and oriented X 3, 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, No motor deficit, No sensory deficit, Normal speech Eye Opening: Spontaneous Motor: Obeys Commands Verbal: Oriented GCS Score: 15 Results - Vitals Vitals: Vital Signs - 24 hr 06/10/20 06/10/20 06/10/20 18:42 19:10 19:40 Temperature 36.3 C L Heart Rate 85 82 77 Respiratory 16 23 20 Rate Blood Pressure 177/90 H 192/92 H 161/83 H O2 Saturation 97 96 96 06/10/20 22:39 Temperature 36.5 C Heart Rate 84 Respiratory 21 Rate Blood Pressure 160/75 H O2 Saturation 96 Oxygen O2 Source Room air - EKG (time done) No standard instances Rhythm: NSR Lane: Normal Intervals: Normal NE, Wide QRS (NSIVCD) QRS: Normal Ischemia: Normal ST segments - Labs Labs: Laboratory Tests 06/10/20 06/10/20 06/10/20 19:16 19:16 19:16 WBC 7.0 RBC 4.41 Hgb 13.1 Hct 39.6 MCV 89.8 MCH 29.7 MCHC 33.1 RDW 13.3 Plt Count 380 MPV 9.2 Neut # (Auto) 5.1 Lymph # (Auto) 1.0 L [place] # (Auto) 0.7 Eos # (Auto) 0.1 Baso # (Auto) 0.1 Absolute Nucleated RBC 0.00 Nucleated RBC % 0.0 Sodium 127 L Potassium 4.3 Chloride 91 L Carbon Dioxide 24 Anion Gap 12.0 BUN 18 Creatinine 1.0 Estimated GFR (MDRD) 53 L Glucose 177 H Calcium 9.2 Total Bilirubin 0.5 AST 21 ALT 20 Alkaline Phosphatase 45 Troponin I High Sens 4.8 Total Protein 7.0 Albumin 4.2 Globulin 2.8 Albumin/Globulin Ratio 1.5 Lipase 43 Urine Color Urine Clarity Urine pH Ur Specific Dorothy Urine Protein Urine Glucose (UA) Urine Ketones Urine Occult Blood Urine Nitrite Urine Bilirubin Urine Urobilinogen Ur Leukocyte Esterase Ur Microscopic Review Urine Culture Comments 06/10/20 21:56 WBC RBC Hgb Hct MCV MCH MCHC RDW Plt Count MPV Neut # (Auto) Lymph # (Auto) [place] # (Auto) Eos # (Auto) Baso # (Auto) Absolute Nucleated RBC Nucleated RBC % Sodium Potassium Chloride Carbon Dioxide Anion Gap BUN Creatinine Estimated GFR (MDRD) Glucose Calcium Total Bilirubin AST ALT Alkaline Phosphatase Troponin I High Sens Total Protein Albumin Globulin Albumin/Globulin Ratio Lipase Urine Color YELLOW Urine Clarity CLEAR Urine pH 6.0 Ur Specific Dorothy 1.010 Urine Protein NEGATIVE Urine Glucose (UA) NEGATIVE Urine Ketones NEGATIVE Urine Occult Blood NEGATIVE Urine Nitrite NEGATIVE Urine Bilirubin NEGATIVE Urine Urobilinogen 0.2 (NORMAL) Ur Leukocyte Esterase NEGATIVE Ur Microscopic Review NOT INDICATED Urine Culture Comments NOT INDICATED PD MEDICAL DECISION MAKING - ED course Complexity details: reviewed results, re-evaluated patient, considered differential, d/w patient ED course: on reevaluation after IV fluids, patient says she feels much better and requesting d/c home. Her tests are reassuring, most notable for mild hyponatremia which might have contributed to symptoms although unlikely to be the causative etiology. Departure - Departure Disposition: 01 Home, Self Care Clinical Impression: Dehydration, Lightheadedness Condition: Good Instructions: ED Dehydration, ED Near Syncope Unkn Follow-Up: Kirstie Powers DO [Primary Care Provider] - Discharge Date/Time: 06/10/20 22:39
[2020-06-10] MEDS ORDERED: SODIUM CHLORIDE 0.9% 500 ML IV STA ×2 (19:27→21:13)
[2020-06-10 19:33] LABS: BASOPHILS # (AUTO) 0.1 10^3/uL (0.0-0.1); EOSINOPHILS # (AUTO) 0.1 10^3/uL (0.0-0.7); HCT - HEMATOCRIT 39.6 % (37.0-47.0); HGB - HEMOGLOBIN 13.1 g/dL (12.0-16.0); LYMPHOCYTES % (AUTO) 14.2 %; MEAN CORPUSCULAR HEMOGLOBIN 29.7 pg (27.0-31.0); MEAN CORPUSCULAR HGB CONC 33.1 g/dL (32.0-36.0); MEAN CORPUSCULAR VOLUME 89.8 fL (81.0-99.0); MEAN PLATELET VOLUME 9.2 fL (7.9-10.8); MONOCYTES # (AUTO) 0.7 10^3/uL (0.0-1.0); MONOCYTES % (AUTO) 10.1 %; NEUTROPHILS # (AUTO) 5.1 10^3/uL (1.5-6.6); NEUTROPHILS % (AUTO) 73.1 %; PLT - PLATELET COUNT 380 10^3/uL (130-450); RED BLOOD COUNT 4.41 10^6/uL (4.20-5.40); RED CELL DISTRIBUTION WIDTH 13.3 % (12.0-15.0)
[2020-06-10 19:53] LABS: ALBUMIN 4.2 g/dL (3.2-5.5); ALBUMIN/GLOBULIN RATIO 1.5 (1.0-2.2); BILIRUBIN,TOTAL 0.5 mg/dL (0.2-1.0); CALCIUM 9.2 mg/dL (8.5-10.3); POTASSIUM 4.3 mmol/L (3.5-5.0)
[2020-06-10 22:06] LABS: BILIRUBIN,URINE NEGATIVE (NEGATIVE); GLUCOSE, URINE (UA) NEGATIVE (NEGATIVE); KETONES,URINE (UA) NEGATIVE (NEGATIVE); LEUKOCYTE ESTERASE, URINE NEGATIVE (NEGATIVE); NITRITE,URINE NEGATIVE (NEGATIVE); OCCULT BLOOD,URINE NEGATIVE (NEGATIVE); PROTEIN,URINE NEGATIVE (NEGATIVE); UROBILINOGEN,URINE 0.2 (NORMAL) E.U./dL (NORMAL)
[2020-06-10 22:08] LABS: CLARITY,URINE CLEAR (CLEAR)
[2020-06-10 22:41] VITALS: BP 160/75
== END 2020-06-10 22:39 | disposition home or self-care (01) ==
LOC: ED 18:30
DX: E86.0 Dehydration (principal); E87.1 Hypo-osmolality and hyponatremia; R42 Dizziness and giddiness; R53.1 Weakness; I10 Essential (primary) hypertension; E11.9 Type 2 diabetes mellitus without complications; Z79.84 Long term (current) use of oral hypoglycemic drugs; Z86.711 Personal history of pulmonary embolism; Z79.01 Long term (current) use of anticoagulants
CPT/HCPCS: 36415; 80053; 81001; 81003; 83690; 84484; 85025; 87086; 93005; 96360; 96361; 99284

== ENCOUNTER 2020-09-01 07:47 | Outpatient (CLI) | payer MEDICARE, OTHER ==
[2020-09-01 12:30] LABS: ALBUMIN 4.3 g/dL (3.2-5.5); ALBUMIN/GLOBULIN RATIO 1.5 (1.0-2.2); ALKALINE PHOSPHATASE 46 IU/L (42-121); ALT ALANINE AMINOTRANSFERASE 23 IU/L (10-60); AST ASPARTATE AMINOTRANSFERASE 19 IU/L (10-42); BILIRUBIN,TOTAL 0.8 mg/dL (0.2-1.0); BUN - BLOOD UREA NITROGEN 14 mg/dL (6-20); CALCIUM 9.1 mg/dL (8.5-10.3); CARBON DIOXIDE - CO2 25 mmol/L (21-32); CHLORIDE 91 mmol/L (101-111); CHOL/HDL RATIO 3.8 (<4.4); CHOLESTEROL 261 mg/dL; GFR - MDRD 53 (>89); GLUCOSE 129 mg/dL (70-100); HDL CHOLESTEROL 68 mg/dL; LDL CHOLESTEROL,CALCULATED 159 mg/dL; LDL/HDL RATIO 2.3 (<4.4); POTASSIUM 4.4 mmol/L (3.5-5.0); SODIUM 125 mmol/L (135-145); TOTAL PROTEIN 7.2 g/dL (6.7-8.2); TRIGLYCERIDES 172 mg/dL; VLDL CHOLESTEROL 34 mg/dL
[2020-09-01 12:34] LABS: BILIRUBIN,URINE NEGATIVE (NEGATIVE); GLUCOSE, URINE (UA) NEGATIVE (NEGATIVE); KETONES,URINE (UA) NEGATIVE (NEGATIVE); LEUKOCYTE ESTERASE, URINE SMALL (NEGATIVE); NITRITE,URINE NEGATIVE (NEGATIVE); OCCULT BLOOD,URINE NEGATIVE (NEGATIVE); PH,URINE 6.5 PH (5.0-7.5); PROTEIN,URINE NEGATIVE (NEGATIVE); UROBILINOGEN,URINE 0.2 (NORMAL) E.U./dL (NORMAL)
[2020-09-01 12:40] LABS: CLARITY,URINE HAZY (CLEAR)
[2020-09-01 12:45] LABS: CREATININE,URINE 77.1 mg/dL; MICROALBUM/CREATININE RATIO,UR 16.9 ug/mg (<30.0); MICROALBUMIN,URINE 1.3 mg/dL (0-300.0)
[2020-09-01 12:50] LABS: BACTERIA,URINE Rare /HPF (None Seen); RBC,URINE 0-5 /HPF (0-5); SQUAMOUS EPITHELIAL CELL,UR RARE Squamous (<= Few)
[2020-09-01 13:40] LABS: ESTIMATED AVERAGE GLUCOSE 154 mg/dL (70-100)
== END 2020-09-01 07:48 | disposition home or self-care (01) ==
LOC: LAB.N 07:47
PROVIDERS: ATTEND Family Medicine
DX: E11.9 Type 2 diabetes mellitus without complications (principal)
CPT/HCPCS: 36415; 80053; 80061; 81001; 82043; 82570; 83036; 83721; 87077; 87086; 87181

== ENCOUNTER 2020-10-19 08:46 | Outpatient (CLI) | payer MEDICARE, OTHER ==
[2020-10-19 09:24] LABS: CALCIUM 9.5 mg/dL (8.5-10.3); CREATININE 0.8 mg/dL (0.4-1.0); POTASSIUM 4.5 mmol/L (3.5-5.0)
[2020-10-19] MEDS ORDERED: IOPAMIDOL-300 100 ML VIAL ONE (09:54)
[2020-10-19] MEDS ORDERED: IOPAMIDOL-370 100 ML VIAL IVP ONE (10:27)
--- NOTE | 2020-10-19 12:49 | CT Report ---
PROCEDURE: ABDOMEN W/WO INDICATIONS: ABD PAIN/PANCREATIC CYST CONTRAST: IV CONTRAST: Isovue 300 ml: 100 PO CONTRAST: *NO PO CONTRAST TECHNIQUE: Noncontrast 5 mm thick sections acquired from the diaphragms to the symphysis. 5 mm coronal and sagi ttal reformats were then performed. For radiation dose reduction, the following was used: automated exposure control, adjustment of mA and/or kV according to patient size. COMPARISON: None. FINDINGS: Image quality: Excellent. Lung bases: Lung bases are clear. Heart size is normal. Solid organs: Liver and spleen are normal in size and enhancement. Gallbladder is status post sukhi cystectomy Biliary system is non dilated. A nonenhancing pancreatic head low density measuring 2.2 x 1.4 cm is unchanged compared to the prior CT on 04/19/2019. The kidneys are small and demonstrate bila teral cortical scarring. No hydronephrosis or nephrolithiasis. The adrenal glands are normal. Peritoneum and bowel: Unenhanced bowel loops are normal in caliber and wall thickness. No free flui d or air. There is a small hiatal hernia. There is diverticulosis without evidence of diverticulitis . The appendix is normal. Nodes and vessels: No retroperitoneal or mesenteric adenopathy by size criteria. Aorta and inferior vena cava are normal in size with diffuse atherosclerotic calcifications. Partially visualized aort obifemoral stent grafts are seen with no evidence of endoleak. Miscellaneous: No ventral hernias. Bones: No suspicious bony lesions. No vertebral body compression fractures. The visualized thoracic and lumbar spine demonstrate degenerative changes with no vertebral body height loss. IMPRESSION: Pancreatic head cystic lesion measuring 2.2 x 1.4 cm, unchanged compared to prior CT on 04/19/2019. Given stability since 04/19/2019 a benign pancreatic cyst or low-grade cystic neoplasm is fav ored. Recommend continued annual follow-up. Reviewed by: Nathan Major on 10/19/2020 12:47 PM PDT Approved by: Nathan Major on 10/19/2020 12:47 PM PDT Station ID: [id number]
== END 2020-10-19 08:47 | disposition home or self-care (01) ==
LOC: LAB 08:46 → DI 08:47
PROVIDERS: ATTEND Family Medicine
DX: K86.2 Cyst of pancreas (principal); E87.1 Hypo-osmolality and hyponatremia
CPT/HCPCS: 36415; 74170; 80048; 83930; 83935; 84300; Q9967

== ENCOUNTER 2021-01-25 08:00 | Outpatient (CLI) | payer MEDICARE, OTHER | END 2021-01-25 23:59 | disposition home or self-care (01) | LOC: LAB.N 08:00 | PROVIDERS: ATTEND Physician Assistant | DX: R39.9 Unspecified symptoms and signs involving the genitourinary system (principal) | CPT/HCPCS: 87077; 87086; 87181 ==

== ENCOUNTER 2021-02-06 08:00 | Outpatient (CLI) | payer MEDICARE, OTHER | END 2021-02-06 23:59 | disposition home or self-care (01) | LOC: LAB.N 08:00 | PROVIDERS: ATTEND Family Medicine | DX: R30.0 Dysuria (principal) | CPT/HCPCS: 87086 ==

== ENCOUNTER 2021-03-21 07:27 | Outpatient (CLI) | payer MEDICARE, OTHER ==
[2021-03-21 14:17] LABS: CREATININE,URINE 71.3 mg/dL; MICROALBUM/CREATININE RATIO,UR 29.5 ug/mg (<30.0); MICROALBUMIN,URINE 2.1 mg/dL (0-300.0)
[2021-03-21 14:30] LABS: CALCIUM 9.8 mg/dL (8.5-10.3); CREATININE 1.7 mg/dL (0.4-1.0); POTASSIUM 4.9 mmol/L (3.5-5.0)
[2021-03-21 19:03] LABS: ESTIMATED AVERAGE GLUCOSE 163 mg/dL (70-100); HEMOGLOBIN A1c% 7.3 % (4.27-6.07)
== END 2021-03-21 07:28 | disposition home or self-care (01) ==
LOC: LAB.N 07:27
PROVIDERS: ATTEND Family Medicine
DX: E11.9 Type 2 diabetes mellitus without complications (principal); K86.89 Other specified diseases of pancreas
CPT/HCPCS: 36415; 80048; 82043; 82570; 83036

== ENCOUNTER 2021-03-27 08:00 | Outpatient (CLI) | payer MEDICARE, OTHER ==
[2021-03-27 18:41] LABS: BASOPHILS # (AUTO) 0.1 10^3/uL (0.0-0.1); BASOPHILS % (AUTO) 1.3 %; EOSINOPHILS # (AUTO) 0.1 10^3/uL (0.0-0.7); EOSINOPHILS % (AUTO) 0.8 %; HCT - HEMATOCRIT 40.4 % (37.0-47.0); HGB - HEMOGLOBIN 12.9 g/dL (12.0-16.0); LYMPHOCYTES # (AUTO) 1.8 10^3/uL (1.5-3.5); LYMPHOCYTES % (AUTO) 23.4 %; MEAN CORPUSCULAR HEMOGLOBIN 29.3 pg (27.0-31.0); MEAN CORPUSCULAR HGB CONC 31.9 g/dL (32.0-36.0); MEAN CORPUSCULAR VOLUME 91.8 fL (81.0-99.0); MEAN PLATELET VOLUME 9.9 fL (7.9-10.8); MONOCYTES # (AUTO) 0.5 10^3/uL (0.0-1.0); MONOCYTES % (AUTO) 6.4 %; NEUTROPHILS # (AUTO) 5.3 10^3/uL (1.5-6.6); NEUTROPHILS % (AUTO) 67.8 %; PLT - PLATELET COUNT 490 10^3/uL (130-450); RED CELL DISTRIBUTION WIDTH 13.7 % (12.0-15.0); WHITE BLOOD COUNT 7.8 x10^3/uL (4.8-10.8)
[2021-03-27 18:47] LABS: CREATININE,URINE 89.2 mg/dL
[2021-03-27 19:18] LABS: CREATININE 1.6 mg/dL (0.4-1.0)
[2021-03-27 19:28] LABS: CALCIUM 9.7 mg/dL (8.5-10.3); POTASSIUM 4.4 mmol/L (3.5-5.0)
== END 2021-03-27 23:59 ==
LOC: LAB.WCP 08:00
PROVIDERS: ATTEND Family Medicine
DX: N28.9 Disorder of kidney and ureter, unspecified (principal); R53.83 Other fatigue
CPT/HCPCS: 36415; 80048; 82043; 82570; 84300; 85025

== ENCOUNTER 2021-04-11 12:26 | Outpatient (CLI) | payer MEDICARE, OTHER ==
--- NOTE | 2021-04-12 12:15 | Ultrasound Report ---
PROCEDURE: Retroperitoneal INDICATIONS: ACUTE RENAL INSUFFICIENCY TECHNIQUE: Real-time scanning was performed of the retroperitoneal organs, with image documentation. COMPARISON: CT abdomen and pelvis dated 10/19/2020. FINDINGS: Kidneys: Kidneys are atrophic in size. Right kidney measures 9.9 cm long; left kidney measures 7.4 cm long. Right renal cortical thickness is 1.2 cm; left renal cortical thickness is 1.3 cm. There i s echogenic renal echotexture. No solid masses, hydronephrosis, or nephrolithiasis. Urinary bladder: Prevoid urinary bladder volume measures 53 mL with post void residual volume of 16 m L. Bilateral ureteral jets were noted. Otherwise, unremarkable sonographic appearance of the urinary bladder. Miscellaneous: No free abdominal fluid. IMPRESSION: Bilateral renal atrophy, minimal on the right without evidence for urolithiasis or obstructive uropat hy. Diffusely echogenic renal echotexture of the bilateral kidneys compatible with sequela of chronic medical renal disease. Reviewed by: Antoine Alves MD on 04/12/2021 12:14 PM PST Approved by: Antoine Alves MD on 04/12/2021 12:14 PM PST Station ID: [id number]
== END 2021-04-11 12:27 | disposition home or self-care (01) ==
LOC: DI 12:26
PROVIDERS: ATTEND Family Medicine
DX: N28.9 Disorder of kidney and ureter, unspecified (principal); N26.1 Atrophy of kidney (terminal)

== ENCOUNTER 2021-04-23 12:52 | Outpatient (CLI) | payer MEDICARE, OTHER | END 2021-04-23 12:53 | disposition home or self-care (01) | LOC: NS 12:52 | PROVIDERS: ATTEND Family Medicine | DX: Z71.3 Dietary counseling and surveillance (principal); E11.9 Type 2 diabetes mellitus without complications; N28.9 Disorder of kidney and ureter, unspecified | CPT/HCPCS: 97802 ==

== ENCOUNTER 2021-05-23 20:06 | Outpatient (CLI) | payer MEDICARE, OTHER | END 2021-05-23 20:07 | disposition critical access hospital (66) | LOC: EMS 20:06 | DX: K62.5 Hemorrhage of anus and rectum (principal); R10.817 Generalized abdominal tenderness; Z79.01 Long term (current) use of anticoagulants | CPT/HCPCS: A0425; A0429 ==

== ENCOUNTER 2021-05-23 20:27 | Emergency (ER) | payer MEDICARE, OTHER ==
[2021-05-23 21:10] LABS: HCT - HEMATOCRIT 36.3 % (37.0-47.0); MONOCYTES % (AUTO) 2.9 %
[2021-05-23 21:15] LABS: ALBUMIN 3.8 g/dL (3.2-5.5); ALBUMIN/GLOBULIN RATIO 1.2 (1.0-2.2); BILIRUBIN,TOTAL 0.8 mg/dL (0.2-1.0); CALCIUM 9.2 mg/dL (8.5-10.3); CREATININE 1.4 mg/dL (0.4-1.0); POTASSIUM 4.7 mmol/L (3.5-5.0); TOTAL PROTEIN 7.1 g/dL (6.7-8.2)
[2021-05-23 21:16] LABS: BASOPHILS % (AUTO) 0.2 %; EOSINOPHILS % (AUTO) 0.1 %; HGB - HEMOGLOBIN 12.1 g/dL (12.0-16.0); LYMPHOCYTES % (AUTO) 1.4 %; MEAN CORPUSCULAR HGB CONC 33.3 g/dL (32.0-36.0); MEAN CORPUSCULAR VOLUME 87.1 fL (81.0-99.0); MEAN PLATELET VOLUME 9.1 fL (7.9-10.8); NEUTROPHILS % (AUTO) 94.5 %; PLT - PLATELET COUNT 494 10^3/uL (130-450); RED BLOOD COUNT 4.17 10^6/uL (4.20-5.40); RED CELL DISTRIBUTION WIDTH 13.7 % (12.0-15.0); WHITE BLOOD COUNT 27.3 x10^3/uL (4.8-10.8)
[2021-05-23 21:17] LABS: ABNORMAL LYMPHS % (MANUAL) 0 %
--- NOTE | 2021-05-23 21:22 | ED Physician Documentation ---
History of Present Illness - Stated complaint Stated Complaint: POSS RECTAL BLEEDING - Chief complaint Chief Complaint: Abd Pain - History obtained from History obtained from: Patient - Additonal information Additional information: 85-year-old woman with past medical history of hemorrhoids, high blood pressure, PE on Eliquis, [place] status post stent, diabetes type 2, presents with constipation, bloating over the past couple days. Patient had a loose watery stool status post laxative and called EMS because she noted a large amount of blood when wiping with toilet paper. Denies nausea, dizziness, chest pain, shortness of breath, vomiting. Review of Systems Ten Systems: 10 systems reviewed and negative Constitutional: denies: Fever, Chills GI: reports: Abdominal Pain, Bloody / black stool. denies: Nausea, Vomiting PD PAST MEDICAL HISTORY - Past Medical History Past Medical History: Yes Cardiovascular: Hypertension, Pulmonary embolism, [place] Endocrine/Autoimmune: Type 2 diabetes, HyPOthyroidism GI: GERD - Past Surgical History Past Surgical History: Yes General: Cholecystectomy Cardiovascular: Coronary stent - Present Medications Home Medications: Ambulatory Orders Medication Instructions Recorded Confirmed Apixaban [Eliquis] 5 mg PO BID 06/10/20 05/23/21 Levothyroxine [Synthroid] 75 mcg PO DAILY 06/10/20 05/23/21 Losartan [Cozaar] 100 mg PO DAILY 06/10/20 05/23/21 Pramipexole [Mirapex] 0.25 mg PO TID 06/10/20 05/23/21 Amox/Clav 875/125 [Augmentin 1 tablet PO Q12H 7 Days #14 tablet 05/23/21 875/125 Tab] Lactobacillus Acidophilus 1 each PO QDAC #30 tablet 05/23/21 [Acidophilus] Sennosides/Docusate Sodium 1 each PO QDAC PRN #30 tablet 05/23/21 [Senna-Docusate Sodium Tablet] amLODIPine [Norvasc] 5 mg PO BID 05/23/21 05/23/21 metroNIDAZOLE [Flagyl] 500 mg PO BID 7 Days #14 tablet 05/23/21 - Allergies Allergies/Adverse Reactions: Allergies Allergy/AdvReac Type Severity Reaction Status Date / Time gluten Allergy Unknown Verified 05/23/21 20:36 lactose Allergy Unknown Verified 05/23/21 20:36 lisinopril Allergy Unknown Verified 05/23/21 20:36 Jiqnaya-OJK-UvX Reductase Allergy Unknown Verified 05/23/21 20:36 Inhibitor [Kcxrntl-Ohj-Fth Reductase Inhibitor] wheat Allergy Unknown Verified 05/23/21 20:36 - Social History Does the pt smoke?: No Smoking Status: Never smoker Does the pt drink ETOH?: No Does the pt have substance abuse?: Yes - Immunizations Immunizations are current?: Yes - POLST Patient has POLST: No PD ED PE NORMAL - Vitals Vital signs reviewed: Yes - General General: Alert and oriented X 3, No acute distress, Well developed/nourished - HEENT HEENT: Atraumatic, PERRL, EOMI - Neck Neck: Supple, no meningeal sign - Cardiac Cardiac: RRR - Respiratory Respiratory: No respiratory distress, Clear bilaterally - Abdomen Abdomen: Non tender, Non distended, Other (Diffuse discomfort to palpation) - Back Back: No CVA TTP - Derm Derm: Normal color, Warm and dry - Extremities Extremities: No deformity - Neuro Neuro: Alert and oriented X 3, No motor deficit, No sensory deficit - Psych Psych: Normal mood, Normal affect Results - Vitals Vitals: Vital Signs - 24 hr 05/23/21 05/23/21 05/23/21 20:36 21:05 22:48 Temperature 36.3 C L Heart Rate 103 H 98 100 Respiratory 18 19 20 Rate Blood Pressure 166/82 H 135/77 H 163/93 H O2 Saturation 94 94 94 Oxygen O2 Source Room air - Labs Labs: Microbiology 05/23/21 20:51 Occult Blood - Final Stool Laboratory Tests 05/23/21 05/23/21 20:57 20:57 WBC 27.3 H RBC 4.17 L Hgb 12.1 Hct 36.3 L MCV 87.1 MCH 29.0 MCHC 33.3 RDW 13.7 Plt Count 494 H MPV 9.1 Neut # (Auto) Not Reportable Lymph # (Auto) Not Reportable [place] # (Auto) Not Reportable Eos # (Auto) Not Reportable Baso # (Auto) Not Reportable Absolute Nucleated RBC Not Reportable Total Counted 100 Band Neuts % (Manual) 10 Abnorm Lymph % (Manual) 0 Nucleated RBC % Not Reportable Neutrophils # (Manual) 24.8 H Lymphocytes # (Manual) 1.4 L Monocytes # (Manual) 1.1 H Eosinophils # (Manual) 0.0 Basophils # (Manual) 0.0 Differential Comment MANUAL DIFFERENTIAL Platelet Estimate INCREASED (>450,000) RBC Morph Micro Appear NORMAL APPEARANCE Sodium 121 L Potassium 4.7 Chloride 89 L Carbon Dioxide 21 Anion Gap 11.0 BUN 19 Creatinine 1.4 H Estimated GFR (MDRD) 36 L Glucose 241 H Calcium 9.2 Total Bilirubin 0.8 AST 30 ALT 22 Alkaline Phosphatase 73 Total Protein 7.1 Albumin 3.8 Globulin 3.3 Albumin/Globulin Ratio 1.2 Lipase 37 PD MEDICAL DECISION MAKING - ED course ED course: 85-year-old woman presents with blood on toilet paper when wiping this evening. Found to have elevated white blood cell count of 27 and sodium of 121 (glucose adjusted 124). Patient has been hyponatremic in the past but says that her doctors have not found the cause. Patient does not appear to be on any sodium wasting diuretics. Advised to follow-up with her primary regarding her sodium. CT scan without any signs of active cancer, SIADH, tumors, etc. but we do see rectal colitis therefore antibiotics provided in addition to probiotic and stool softener in light of her recent constipation. strict return precautions given. Departure - Departure Disposition: Home, Self Care Clinical Impression: Colitis, Leukocytosis, Hyponatremia Condition: Stable Instructions: Abdominal Pain Prescriptions: Lactobacillus Acidophilus [Acidophilus] 1 each PO QDAC #30 tablet Amox/Clav 875/125 [Augmentin 875/125 Tab] 1 tablet PO Q12H 7 Days #14 tablet metroNIDAZOLE [Flagyl] 500 mg PO BID 7 Days #14 tablet Sennosides/Docusate Sodium [Senna-Docusate Sodium Tablet] 1 each PO QDAC PRN #30 tablet PRN Reason: Constipation Comments: You were seen in the emergency department for evaluation of rectal bleeding. You have some inflammation in the rectal area on your CT that indicates colitis (which can be inflammatory or caused by infection). Because of this I am putting her on a course of antibiotics. Make sure that you follow-up with your doctor this week and return to the emergency department if you have any new or worsening symptoms, develop fevers or have other concerns. Please also take a stool softener (senna/docusate) as needed for constipation and a probiotic to help keep your gut healthy.
[2021-05-23 21:39] LABS: BAND NEUTROPHILS % (MANUAL) 10 %; LYMPHOCYTES # (MANUAL) 1.4 10^3/uL (1.5-3.5); LYMPHOCYTES % (MANUAL) 5 %; MONOCYTES # (MANUAL) 1.1 10^3/uL (0.0-1.0); NEUTROPHILS # (MANUAL) 24.8 10^3/uL (1.5-6.6); PLATELET ESTIMATE, MANUAL INCREASED (>450,000) (NORMAL); RBC MORPHOLOGY (MULTIPLE) NORMAL APPEARANCE (NORMAL)
[2021-05-23 21:40] LABS: DIFFERENTIAL COMMENT MANUAL DIFFERENTIAL
[2021-05-23] MEDS ORDERED: ACETAMINOPHEN 325 MG TABLET PO STA (22:57)
--- NOTE | 2021-05-23 23:25 | CT Report ---
PROCEDURE: CHEST WO INDICATIONS: WBC27, Na 121 TECHNIQUE: Noncontrast 1mm axial images were acquired from the pulmonary apices to the posterior costophrenic an gles. Axial 5 mm soft tissue kernel reconstructions were performed as well as 8 mm axial MIP and cor onal and sagittal 5 mm reformations. For radiation dose reduction, the following was used: automate d exposure control, adjustment of mA and/or kV according to patient size. COMPARISON: None. FINDINGS: Image quality: Excellent. Lungs and pleura: No acute air space opacities. No pleural effusions or pneumothorax. Central and peripheral airways are patent and normal in caliber. Mediastinum: Heart size is normal. No pericardial effusion. Aortic and coronary artery atherosclero tic calcifications are present. No mediastinal adenopathy by size criteria. Thoracic aorta and centr al pulmonary arteries are normal in size. Esophagus is normal in caliber. Small hiatal hernia. Bones and chest wall: No suspicious bony lesions. No vertebral body compression fractures. Degenera tive changes are seen in the spine. No axillary or supraclavicular adenopathy by size criteria. The thyroid is normal in size. Abdomen: Status post cholecystectomy. Abdominal aortic stent graft is partially imaged. Visualized u pper abdominal solid organs and bowel loops appear normal in the absence of contrast. IMPRESSION: No acute abnormality is seen within the chest. Reviewed by: Main Kendall MD on 05/23/2021 11:25 PM PST Approved by: Main Kendall MD on 05/23/2021 11:25 PM PST Station ID: [id number]
--- NOTE | 2021-05-23 23:30 | CT Report ---
PROCEDURE: Abdomen/Pelvis WO INDICATIONS: constipation bloating abd pain brbprWBC 27, Na 121 TECHNIQUE: Noncontrast 5 mm thick sections acquired from the diaphragms to the symphysis. 5 mm coronal and sagi ttal reformats were then performed. For radiation dose reduction, the following was used: automated exposure control, adjustment of mA and/or kV according to patient size. COMPARISON: CT abdomen/pelvis 10/19/2020. FINDINGS: Image quality: Images of the upper abdomen are degraded by respiratory motion. Diagnostic informatio n is obtained. ABDOMEN: Lung bases: Lung bases are clear. Heart size is normal. Solid organs: Evaluation of the upper abdominal organs is compromised by respiratory motion. Liver a nd spleen are normal in size. Status post cholecystectomy. Pancreas is normal in contours. No adrena l nodules. Left kidney appears somewhat atrophied. No renal calculus or hydronephrosis. Peritoneum and bowel: A prominent stool ball is seen in the rectum measuring 7.1 x 5.5 cm and axial images with surrounding inflammatory fat stranding and presacral edema. Multiple diverticula are seen in the colon without signs of acute diverticulitis. No signs of bowel obstruction. Small hiatal aggie ia. No free fluid or air. Nodes and vessels: No retroperitoneal or mesenteric adenopathy by size criteria. Aortobiiliac stent graft is seen extending from the level of the diaphragm to the common iliac arteries. Excluded aneur ysm sac measures up to 4.3 cm in diameter on coronal images. Miscellaneous: No ventral hernias. PELVIS: Genitourinary: Bladder is moderately distended. Bladder wall thickness is normal. Status post hyste rectomy. Miscellaneous: Small fat-containing right inguinal hernia. Bones: No suspicious bony lesions. No vertebral body compression fractures. IMPRESSION: 1.Large volume of stool within the rectum with surrounding rectal wall thickening and perirectal infl ammatory changes, which are suspicious for stercoral colitis/proctitis. 2.Colonic diverticulosis without signs of acute diverticulitis. 3.Aortic stent graft with stable size of the excluded aneurysm sac. Reviewed by: Main Kendall MD on 05/23/2021 11:31 PM PST Approved by: Main Kendall MD on 05/23/2021 11:31 PM PST Station ID: [id number]
[2021-05-24 00:01] VITALS: BP 155/85
== END 2021-05-24 00:21 | disposition home or self-care (01) ==
LOC: EDUNIT# → ED 20:27
DX: K52.9 Noninfective gastroenteritis and colitis, unspecified (principal); D72.829 Elevated white blood cell count, unspecified; E87.1 Hypo-osmolality and hyponatremia; I26.99 Other pulmonary embolism without acute cor pulmonale; Z79.01 Long term (current) use of anticoagulants; Z95.5 Presence of coronary angioplasty implant and graft; E11.9 Type 2 diabetes mellitus without complications; I25.2 Old myocardial infarction; I11.9 Hypertensive heart disease without heart failure
CPT/HCPCS: 36415; 71250; 74176; 80053; 82272; 83690; 85025; 99284; A9270

== ENCOUNTER 2021-06-04 07:13 | Outpatient (CLI) | payer MEDICARE, OTHER ==
[2021-06-04 12:04] LABS: BASOPHILS # (AUTO) 0.1 10^3/uL (0.0-0.1); EOSINOPHILS % (AUTO) 12.4 %; HCT - HEMATOCRIT 41.2 % (37.0-47.0); HGB - HEMOGLOBIN 13.2 g/dL (12.0-16.0); LYMPHOCYTES # (AUTO) 1.5 10^3/uL (1.5-3.5); LYMPHOCYTES % (AUTO) 19.3 %; MEAN CORPUSCULAR VOLUME 90.5 fL (81.0-99.0); MEAN PLATELET VOLUME 9.7 fL (7.9-10.8); MONOCYTES # (AUTO) 0.6 10^3/uL (0.0-1.0); MONOCYTES % (AUTO) 7.5 %; NEUTROPHILS # (AUTO) 4.6 10^3/uL (1.5-6.6); NEUTROPHILS % (AUTO) 59.3 %; PLT - PLATELET COUNT 469 10^3/uL (130-450); RED BLOOD COUNT 4.55 10^6/uL (4.20-5.40); RED CELL DISTRIBUTION WIDTH 14.5 % (12.0-15.0); WHITE BLOOD COUNT 7.8 x10^3/uL (4.8-10.8)
[2021-06-04 12:07] LABS: CREATININE,URINE 84.3 mg/dL
[2021-06-04 12:09] LABS: BILIRUBIN,URINE NEGATIVE (NEGATIVE); GLUCOSE, URINE (UA) NEGATIVE (NEGATIVE); KETONES,URINE (UA) NEGATIVE (NEGATIVE); LEUKOCYTE ESTERASE, URINE NEGATIVE (NEGATIVE); NITRITE,URINE NEGATIVE (NEGATIVE); OCCULT BLOOD,URINE NEGATIVE (NEGATIVE); PROTEIN,URINE NEGATIVE (NEGATIVE); UROBILINOGEN,URINE 0.2 (NORMAL) E.U./dL (NORMAL)
[2021-06-04 12:21] LABS: BACTERIA,URINE Few /HPF (None Seen); CLARITY,URINE CLEAR (CLEAR); RBC,URINE 0-5 /HPF (0-5); SQUAMOUS EPITHELIAL CELL,UR RARE Squamous (<= Few); WBC,URINE 0-3 /HPF (0-5)
[2021-06-04 12:41] LABS: ALBUMIN 3.9 g/dL (3.2-5.5); ALBUMIN/GLOBULIN RATIO 1.3 (1.0-2.2); BILIRUBIN,TOTAL 0.7 mg/dL (0.2-1.0); CREATININE 1.2 mg/dL (0.4-1.0); TOTAL PROTEIN 6.8 g/dL (6.7-8.2)
[2021-06-04 12:42] LABS: THYROID STIMULATING HORMONE 0.74 uIU/mL (0.34-5.60)
[2021-06-04 13:17] LABS: CALCIUM 9.3 mg/dL (8.5-10.3)
== END 2021-06-04 07:14 | disposition home or self-care (01) ==
LOC: LAB.N 07:13
PROVIDERS: ATTEND Nurse Practitioner Family
DX: E87.1 Hypo-osmolality and hyponatremia (principal); N00.9 Acute nephritic syndrome with unspecified morphologic changes; D72.829 Elevated white blood cell count, unspecified
CPT/HCPCS: 36415; 80053; 81001; 82306; 82570; 82575; 82607; 84300; 84443; 85025

== ENCOUNTER 2021-07-24 14:28 | Outpatient (CLI) | payer MEDICARE, OTHER ==
[2021-07-24 18:01] LABS: CREATININE 1.2 mg/dL (0.4-1.0)
== END 2021-07-24 14:29 | disposition home or self-care (01) ==
LOC: LAB.N 14:28
PROVIDERS: ATTEND Internal Medicine Nephrology
DX: N05.9 Unspecified nephritic syndrome with unspecified morphologic changes (principal); D64.9 Anemia, unspecified
CPT/HCPCS: 36415; 82565; 82607

== ENCOUNTER 2021-12-27 09:49 | Outpatient (CLI) | payer MEDICARE, OTHER ==
[2021-12-27 12:23] LABS: CALCIUM 9.5 mg/dL (8.5-10.3); CREATININE 1.9 mg/dL (0.4-1.0); POTASSIUM 5.2 mmol/L (3.5-5.0)
== END 2021-12-27 09:50 | disposition home or self-care (01) ==
LOC: LAB.N 09:49
PROVIDERS: ATTEND Internal Medicine Nephrology
DX: N05.9 Unspecified nephritic syndrome with unspecified morphologic changes (principal)
CPT/HCPCS: 36415; 80048

== ENCOUNTER 2022-01-07 09:53 | Outpatient (CLI) | payer MEDICARE, OTHER ==
[2022-01-07 13:05] LABS: CALCIUM 9.5 mg/dL (8.5-10.3); POTASSIUM 4.8 mmol/L (3.5-5.0)
[2022-01-09 14:08] LABS: A/G RATIO 1.3 (0.7-1.7); ALPHA-1-GLOBULIN 0.3 g/dL (0.0-0.4); ALPHA-2-GLOBULIN 0.8 g/dL (0.4-1.0); BETA GLOBULIN 0.9 g/dL (0.7-1.3); GAMMA GLOBULIN 1.2 g/dL (0.4-1.8); GLOBULIN TOTAL 3.2 g/dL (2.2-3.9); IMMUNOGLOBULIN A 375 mg/dL (64-422); IMMUNOGLOBULIN G 1158 mg/dL (586-1602); IMMUNOGLOBULIN M 257 mg/dL (26-217); M-SPIKE Not Observed g/dL (Not Observed); PROTEIN TOTAL 7.2 g/dL (6.0-8.5)
[2022-01-10 12:09] LABS: ATYPICAL pANCA <1:20 titer (Neg:<1:20); CYTOPLASMIC (C-ANCA) <1:20 titer (Neg:<1:20); PERINUCLEAR (P-ANCA) <1:20 titer (Neg:<1:20)
== END 2022-01-07 09:54 | disposition home or self-care (01) ==
LOC: LAB.N 09:53
PROVIDERS: ATTEND Internal Medicine Nephrology
DX: M31.30 Wegener's granulomatosis without renal involvement (principal); I77.6 Arteritis, unspecified; N05.9 Unspecified nephritic syndrome with unspecified morphologic changes; D47.2 Monoclonal gammopathy
CPT/HCPCS: 36415; 80048; 82784; 83876; 84155; 84165; 86334

== ENCOUNTER 2022-02-05 08:00 | Outpatient (CLI) | payer MEDICARE, OTHER ==
[2022-02-05 16:15] LABS: BASOPHILS # (AUTO) 0.1 10^3/uL (0.0-0.1); BASOPHILS % (AUTO) 1.3 %; EOSINOPHILS # (AUTO) 0.1 10^3/uL (0.0-0.7); EOSINOPHILS % (AUTO) 1.1 %; HCT - HEMATOCRIT 39.5 % (37.0-47.0); HGB - HEMOGLOBIN 12.9 g/dL (12.0-16.0); LYMPHOCYTES # (AUTO) 1.7 10^3/uL (1.5-3.5); LYMPHOCYTES % (AUTO) 23.9 %; MEAN CORPUSCULAR HEMOGLOBIN 29.6 pg (27.0-31.0); MEAN CORPUSCULAR HGB CONC 32.7 g/dL (32.0-36.0); MEAN CORPUSCULAR VOLUME 90.6 fL (81.0-99.0); MEAN PLATELET VOLUME 10.4 fL (7.9-10.8); MONOCYTES # (AUTO) 0.6 10^3/uL (0.0-1.0); NEUTROPHILS # (AUTO) 4.6 10^3/uL (1.5-6.6); NEUTROPHILS % (AUTO) 65.4 %; PLT - PLATELET COUNT 382 10^3/uL (130-450); RED BLOOD COUNT 4.36 10^6/uL (4.20-5.40); RED CELL DISTRIBUTION WIDTH 14.7 % (12.0-15.0)
[2022-02-05 17:10] LABS: ALBUMIN 4.3 g/dL (3.2-5.5); ALBUMIN/GLOBULIN RATIO 1.3 (1.0-2.2); ALKALINE PHOSPHATASE 45 IU/L (42-121); ALT ALANINE AMINOTRANSFERASE 19 IU/L (10-60); AST ASPARTATE AMINOTRANSFERASE 19 IU/L (10-42); BILIRUBIN,TOTAL 0.7 mg/dL (0.2-1.0); BUN - BLOOD UREA NITROGEN 25 mg/dL (6-20); CALCIUM 9.6 mg/dL (8.5-10.3); CARBON DIOXIDE - CO2 22 mmol/L (21-32); CHLORIDE 104 mmol/L (101-111); CHOLESTEROL 284 mg/dL; CREATININE 1.4 mg/dL (0.4-1.0); CREATININE,URINE 106.8 mg/dL; GFR - MDRD 35 (>89); GLUCOSE 129 mg/dL (70-100); HDL CHOLESTEROL 71 mg/dL; LDL CHOLESTEROL,CALCULATED 167 mg/dL; LDL/HDL RATIO 2.4 (<4.4); MICROALBUM/CREATININE RATIO,UR 17.8 ug/mg (<30.0); MICROALBUMIN,URINE 1.9 mg/dL (0-300.0); POTASSIUM 4.7 mmol/L (3.5-5.0); SODIUM 138 mmol/L (135-145); TOTAL PROTEIN 7.5 g/dL (6.7-8.2); TRIGLYCERIDES 231 mg/dL; VLDL CHOLESTEROL 46 mg/dL
[2022-02-05 17:14] LABS: THYROID STIMULATING HORMONE 1.5 uIU/mL (0.34-5.60)
[2022-02-05 17:17] LABS: CRP - C-REACTIVE PROTEIN < 1.0 mg/dL (0-1.0)
[2022-02-05 21:52] LABS: ESTIMATED AVERAGE GLUCOSE 157 mg/dL (70-100); HEMOGLOBIN A1c% 7.1 % (4.27-6.07)
== END 2022-02-05 23:59 | disposition home or self-care (01) ==
LOC: LAB.R 08:00
PROVIDERS: ATTEND Internal Medicine
DX: Z00.00 Encounter for general adult medical examination without abnormal findings (principal); I25.10 Atherosclerotic heart disease of native coronary artery without angina pectoris; E11.9 Type 2 diabetes mellitus without complications; R06.09 Other forms of dyspnea; I10 Essential (primary) hypertension; E03.9 Hypothyroidism, unspecified; I26.99 Other pulmonary embolism without acute cor pulmonale; Z79.899 Other long term (current) drug therapy
CPT/HCPCS: 80053; 80061; 82043; 82570; 82607; 82728; 83036; 83721; 84443; 85025; 85651; 86140

== ENCOUNTER 2022-02-21 12:52 | Outpatient (CLI) | payer MEDICARE, OTHER ==
[2022-02-21 13:16] LABS: CALCIUM 9.1 mg/dL (8.5-10.3); CREATININE 1.5 mg/dL (0.4-1.0); POTASSIUM 4.6 mmol/L (3.5-5.0)
--- NOTE | 2022-02-22 11:05 | Ultrasound Report ---
PROCEDURE: Carotid Doppler Complete INDICATIONS: RETINAL ARTERY BRANCH OCCLUSION TECHNIQUE: Color and pulse Doppler interrogation was performed of both carotid systems, with image documentation and velocity measurements. COMPARISON: 07/08/2018 FINDINGS: Right side: Brachial blood pressure: 165/70 mm Hg. Common carotid artery peak systolic velocity: 87 cm/sec. Internal carotid artery peak systolic velocity: 71 cm/sec. Internal carotid artery end diastolic velocity: 22 cm/sec. External carotid artery peak systolic velocity: 73 cm/sec. ICA/CCA peak systolic ratio: 1.0 . Crook scale imaging description: Mild plaque Percent internal carotid artery stenosis: Less than 50% . Vertebral artery: Flow direction is antegrade. Left side: Brachial blood pressure: 158/69 mm Hg. Common carotid artery peak systolic velocity: 62 cm/sec. Internal carotid artery peak systolic velocity: 61 cm/sec. Internal carotid artery end diastolic velocity: 18 cm/sec. External carotid artery peak systolic velocity: 79 cm/sec. ICA/CCA peak systolic ratio: 0.8 . Crook scale imaging description: Mild plaque Percent internal carotid artery stenosis: Less than 50% . Vertebral artery: Flow direction is antegrade. IMPRESSION: Less than 50% internal carotid artery stenosis bilaterally. Reviewed by: Main Pringle MD on 02/22/2022 11:04 AM PST Approved by: Main Pringle MD on 02/22/2022 11:04 AM PST Station ID: [id number]
== END 2022-02-21 12:53 | disposition home or self-care (01) ==
LOC: DI 12:52
PROVIDERS: ATTEND Internal Medicine
DX: I65.23 Occlusion and stenosis of bilateral carotid arteries (principal); N05.9 Unspecified nephritic syndrome with unspecified morphologic changes
CPT/HCPCS: 36415; 80048; 93880

== ENCOUNTER 2022-04-25 09:48 | Outpatient (CLI) | payer MEDICARE, OTHER ==
[2022-04-25 10:12] LABS: HGB - HEMOGLOBIN 13.3 g/dL (12.0-16.0); MEAN CORPUSCULAR HEMOGLOBIN 28.9 pg (27.0-31.0); MEAN CORPUSCULAR HGB CONC 31.7 g/dL (32.0-36.0); MEAN CORPUSCULAR VOLUME 91.3 fL (81.0-99.0); MEAN PLATELET VOLUME 9.9 fL (7.9-10.8); RED BLOOD COUNT 4.6 10^6/uL (4.20-5.40); RED CELL DISTRIBUTION WIDTH 13.9 % (12.0-15.0); WHITE BLOOD COUNT 8.4 x10^3/uL (4.8-10.8)
[2022-04-25 10:17] LABS: CALCIUM 9.6 mg/dL (8.5-10.3); CREATININE 1.6 mg/dL (0.4-1.0); PHOSPHORUS 4.3 mg/dL (2.5-4.6); POTASSIUM 5.1 mmol/L (3.5-5.0)
== END 2022-04-25 09:49 | disposition home or self-care (01) ==
LOC: LAB 09:48
PROVIDERS: ATTEND Internal Medicine Nephrology
DX: N05.9 Unspecified nephritic syndrome with unspecified morphologic changes (principal); N25.81 Secondary hyperparathyroidism of renal origin; D70.9 Neutropenia, unspecified; D63.1 Anemia in chronic kidney disease; E83.30 Disorder of phosphorus metabolism, unspecified
CPT/HCPCS: 36415; 80048; 83970; 84100; 85027

== ENCOUNTER 2022-10-09 09:38 | Outpatient (CLI) | payer MEDICARE, OTHER ==
[2022-10-09 12:55] LABS: CALCIUM 9.3 mg/dL (8.5-10.3); CREATININE 1.3 mg/dL (0.6-1.3); POTASSIUM 4.8 mmol/L (3.5-4.5)
== END 2022-10-09 09:39 | disposition home or self-care (01) ==
LOC: LAB.N 09:38
PROVIDERS: ATTEND Internal Medicine
DX: E11.9 Type 2 diabetes mellitus without complications (principal); G25.81 Restless legs syndrome
CPT/HCPCS: 36415; 80048

== ENCOUNTER 2022-10-21 15:02 | Outpatient (CLI) | payer MEDICARE, OTHER ==
[2022-10-21 21:28] LABS: ESTIMATED AVERAGE GLUCOSE 169 mg/dL (70-100); HEMOGLOBIN A1c% 7.5 % (4.27-6.07)
== END 2022-10-21 15:03 | disposition home or self-care (01) ==
LOC: LAB.N 15:02
PROVIDERS: ATTEND Internal Medicine
DX: E11.9 Type 2 diabetes mellitus without complications (principal); G25.81 Restless legs syndrome
CPT/HCPCS: 36415; 82728; 83036

== ENCOUNTER 2023-05-06 13:58 | Emergency (ER) | payer MEDICARE, OTHER ==
--- NOTE | 2023-05-06 14:53 | XRAY Report ---
PROCEDURE: Chest 1V INDICATIONS: Chest pain TECHNIQUE: One view of the chest was acquired. COMPARISON: Chest x-ray 10/18/2021 FINDINGS: Surgical changes and devices: None. Lungs and pleura: No pleural effusions or pneumothorax. Lungs are clear. Mediastinum: Mediastinal contours appear normal. Heart size is mildly prominent. Bones and chest wall: No suspicious bony lesions. Overlying soft tissues appear unremarkable. IMPRESSION: No acute cardiopulmonary process. Reviewed by: Marivel Hennesys MD on 05/06/2023 2:52 PM PST Approved by: Marivel Hennessy MD on 05/06/2023 2:52 PM PST Station ID: [id number]
[2023-05-06 15:21] LABS: BASOPHILS # (AUTO) 0.1 10^3/uL (0.0-0.1); BASOPHILS % (AUTO) 0.8 %; EOSINOPHILS % (AUTO) 0.4 %; HCT - HEMATOCRIT 41.3 % (37.0-47.0); LYMPHOCYTES % (AUTO) 13.2 %; MEAN CORPUSCULAR HEMOGLOBIN 28.8 pg (27.0-31.0); MEAN CORPUSCULAR HGB CONC 31.5 g/dL (32.0-36.0); MEAN CORPUSCULAR VOLUME 91.6 fL (81.0-99.0); MEAN PLATELET VOLUME 9.7 fL (7.9-10.8); MONOCYTES # (AUTO) 0.6 10^3/uL (0.0-1.0); MONOCYTES % (AUTO) 7.3 %; NEUTROPHILS # (AUTO) 6.1 10^3/uL (1.5-6.6); PLT - PLATELET COUNT 419 10^3/uL (130-450); RED BLOOD COUNT 4.51 10^6/uL (4.20-5.40); RED CELL DISTRIBUTION WIDTH 14.5 % (12.0-15.0); WHITE BLOOD COUNT 7.8 x10^3/uL (4.8-10.8)
[2023-05-06 15:43] LABS: TROPONIN I HIGH SENSITIVITY 4.1 ng/L (2.3-14.8)
[2023-05-06 15:55] LABS: ALBUMIN 4.3 g/dL (3.2-5.5); ALBUMIN/GLOBULIN RATIO 1.4 (1.0-2.2); BILIRUBIN,TOTAL 0.5 mg/dL (0.2-1.0); CALCIUM 9.5 mg/dL (8.5-10.3); CREATININE 1.3 mg/dL (0.6-1.3); POTASSIUM 4.5 mmol/L (3.5-4.5); TOTAL PROTEIN 7.4 g/dL (6.4-8.9)
[2023-05-06] MEDS: SODIUM CHLORIDE 0.9% 1,000 ML IV STA (17:39)
--- NOTE | 2023-05-06 18:48 | ED Physician Documentation ---
PD HPI ABD PAIN - Stated complaint Stated Complaint: HIGH HR,LIGHTHEADED,CLAMMY - Chief complaint Chief Complaint: Cardiac - History obtained from History obtained from: Patient, Friend - Additional information Additional information: The patient comes to the emergency department chief complaint of feeling "off" this morning. She states she felt lightheaded and clammy, and that this lasted for several hours. She also felt like her heart rate was up, though the patient and caregiver clarified that this was 90 to 100 bpm. She denies any other specific symptoms. She states she is now feeling quite a bit better. No nausea or vomiting. No diarrhea. No respiratory symptoms. The patient thinks she does pretty well drinking water. No other complaints at this time. PD PAST MEDICAL HISTORY - Past Medical History Past Medical History: Yes Cardiovascular: Hypertension, Pulmonary embolism, PA Respiratory: None Neuro: Other Endocrine/Autoimmune: Type 2 diabetes, HyPOthyroidism GI: GERD : Incontinence Psych: None Musculoskeletal: Osteoarthritis Derm: None - Past Surgical History Past Surgical History: Yes General: Cholecystectomy Cardiovascular: Coronary stent - Present Medications Home Medications: Ambulatory Orders Medication Instructions Recorded Confirmed Levothyroxine [Synthroid] 75 mcg PO DAILY 06/10/20 05/06/23 amLODIPine [Norvasc] 5 mg PO BID 05/23/21 05/06/23 Carbidopa/Levodopa 25/100 [Sinemet 25 - 100 mg PO DAILY 05/06/23 05/06/23 25 mg/100 mg] Gabapentin [Neurontin] 300 mg PO DAILY 05/06/23 05/06/23 Lisinopril [Zestril] 5 mg PO DAILY 05/06/23 05/06/23 Rivaroxaban [Xarelto] 20 mg PO DAILY 05/06/23 05/06/23 Vibegron [Gemtesa] 75 mg PO DAILY 05/06/23 05/06/23 - Allergies Allergies/Adverse Reactions: Allergies Allergy/AdvReac Type Severity Reaction Status Date / Time ciprofloxacin [From Cipro] Allergy Unknown Verified 05/06/23 14:21 gluten Allergy Unknown Verified 05/06/23 14:21 lactose Allergy Unknown Verified 05/06/23 14:21 lisinopril Allergy Unknown Verified 05/06/23 14:21 Ivnhjgd-BET-FdJ Reductase Allergy Unknown Verified 05/06/23 14:21 Inhibitor [Bwpzinj-Zpr-Ann Reductase Inhibitor] wheat Allergy Unknown Verified 05/06/23 14:21 - Social History Does the pt smoke?: No Smoking Status: Former smoker Does the pt drink ETOH?: No Does the pt have substance abuse?: No - Immunizations Immunizations are current?: Yes - POLST Patient has POLST: No PD ED PE NORMAL - Vitals Vital signs reviewed: Yes - General General: Alert and oriented X 3, No acute distress, Well developed/nourished - HEENT HEENT: Atraumatic, PERRL, EOMI, Moist mucous membranes - Neck Neck: Supple, no meningeal sign - Cardiac Cardiac: RRR, No murmur - Respiratory Respiratory: No respiratory distress, Clear bilaterally - Abdomen Abdomen: Soft, Non tender, Non distended - Derm Derm: Warm and dry - Extremities Extremities: No deformity - Neuro Neuro: Alert and oriented X 3 - Psych Psych: Normal mood, Normal affect Results - Vitals Vitals: Oxygen O2 Source Room air - EKG (time done) 1428 EKG releavant findings:: EKG personally interpreted by author of this note. Relevant findings are: Rate: Rate (enter#) (94) Rhythm: NSR [place]: Normal Intervals: Normal DC Ischemia: Normal ST segments Compare to prior EKG: Old EKG unavailable Computer interpretation: Agree with computer - Labs Labs: Laboratory Tests 05/06/23 05/06/23 05/06/23 15:12 15:12 17:40 WBC 7.8 RBC 4.51 Hgb 13.0 Hct 41.3 MCV 91.6 MCH 28.8 MCHC 31.5 L RDW 14.5 Plt Count 419 MPV 9.7 Neut # (Auto) 6.1 Lymph # (Auto) 1.0 L Gilliam # (Auto) 0.6 Eos # (Auto) 0.0 Baso # (Auto) 0.1 Absolute Nucleated RBC 0.00 Nucleated RBC % 0.0 Sodium 132 L Potassium 4.5 Chloride 102 Carbon Dioxide 23 Anion Gap 7.0 BUN 33 H Creatinine 1.3 Estimated GFR (MDRD) 39 L Glucose 149 H Calcium 9.5 Total Bilirubin 0.5 AST 14 ALT 5 L Alkaline Phosphatase 65 Troponin I High Sens 4.1 Total Protein 7.4 Albumin 4.3 Globulin 3.1 Albumin/Globulin Ratio 1.4 Lipase 76 Nasal Adenovirus (PCR) NOT DETECTED Nasal B. parapertussis DNA (PCR) NOT DETECTED Nasal Coronavir 229E PCR NOT DETECTED Nasal Coronavir HKU1 PCR NOT DETECTED Nasal Coronavir NL63 PCR NOT DETECTED Nasal Coronavir OC43 PCR NOT DETECTED Nasal Enterovir/Rhinovir PCR NOT DETECTED Nasal Influenza B PCR NOT DETECTED Nasal Influenza A PCR NOT DETECTED Nasal Parainfluen 1 PCR NOT DETECTED Nasal Parainfluen 2 PCR NOT DETECTED Nasal Parainfluen 3 PCR NOT DETECTED Nasal Parainfluen 4 PCR NOT DETECTED Nasal RSV (PCR) NOT DETECTED Nasal B.pertussis DNA PCR NOT DETECTED Nasal C.pneumoniae (PCR) NOT DETECTED Ryan Human Metapneumo PCR NOT DETECTED Nasal M.pneumoniae (PCR) NOT DETECTED Nasal SARS-CoV-2 (PCR) NOT DETECTED 05/06/23 18:05 WBC RBC Hgb Hct MCV MCH MCHC RDW Plt Count MPV Neut # (Auto) Lymph # (Auto) Gilliam # (Auto) Eos # (Auto) Baso # (Auto) Absolute Nucleated RBC Nucleated RBC % Sodium Potassium Chloride Carbon Dioxide Anion Gap BUN Creatinine Estimated GFR (MDRD) Glucose Calcium Total Bilirubin AST ALT Alkaline Phosphatase Troponin I High Sens 5.5 Total Protein Albumin Globulin Albumin/Globulin Ratio Lipase Nasal Adenovirus (PCR) Nasal B. parapertussis DNA (PCR) Nasal Coronavir 229E PCR Nasal Coronavir HKU1 PCR Nasal Coronavir NL63 PCR Nasal Coronavir OC43 PCR Nasal Enterovir/Rhinovir PCR Nasal Influenza B PCR Nasal Influenza A PCR Nasal Parainfluen 1 PCR Nasal Parainfluen 2 PCR Nasal Parainfluen 3 PCR Nasal Parainfluen 4 PCR Nasal RSV (PCR) Nasal B.pertussis DNA PCR Nasal C.pneumoniae (PCR) Ryan Human Metapneumo PCR Nasal M.pneumoniae (PCR) Nasal SARS-CoV-2 (PCR) - Rads (name of study) chest XR Relevant Findings:: Final report received, See rad report (neg) PD Medical Decision Making - ED course Complexity details: reviewed results, re-evaluated patient, considered differential, d/w patient, d/w family ED course: The pt was well-appearing in the ED, and was feeling better by the time of my evaluation. She was given a liter of NS, and worked up with labs, EKG, and CXR. Work-up was unremarkable. The pt was in normal sinus rhythm throughout her stay in the ED, and I felt she was stable for d/c home. The pt was desirous of this, as well. She states she will follow up with her PCP. We have discussed the usual indications for return. Departure - Departure Disposition: 01 Home, Self Care Clinical Impression: Dehydration, Malaise Condition: Stable Instructions: ED Dehydration Comments: Your labs, EKG, and vital signs all look good. Your heart rate is come down with IV fluids and you were probably bit dehydrated. You may have one of the many viral illnesses that are going around right now and causing people to feel unwell. Your viral panel is still pending at this time. If any significant positive results come back we will let you know. Otherwise, please get plenty of rest and be sure you are drinking lots of fluids. Please follow-up with your primary doctor for further concerns. Forms: PCP List Discharge Date/Time: 05/06/23 19:29
[2023-05-06 19:17] LABS: B. PARAPERTUSSIS- RESP PCR PAN NOT DETECTED; B. PERTUSSIS- RESP PCR PANEL NOT DETECTED; C. PNEUMONIAE- RESP PCR PANEL NOT DETECTED; CORONAVIRUS 229E-RESP PCR NOT DETECTED; CORONAVIRUS HKU1-RESP PCR NOT DETECTED; CORONAVIRUS NL63-RESP PCR NOT DETECTED; CORONAVIRUS OC43-RESP PCR NOT DETECTED; HUMAN METAPNEUMOVIRUS NOT DETECTED; INFLUENZA A- RESP PCR PANEL NOT DETECTED; INFLUENZA B - RESP PCR PANEL NOT DETECTED; M. PNEUMONIAE- RESP PCR PANEL NOT DETECTED; PARAINFLUENZA VIRUS 1 NOT DETECTED; PARAINFLUENZA VIRUS 2 NOT DETECTED; PARAINFLUENZA VIRUS 3 NOT DETECTED; PARAINFLUENZA VIRUS 4 NOT DETECTED; RHINOVIRUS/ENTEROVIRUS NOT DETECTED; RSV- RESP PCR PANEL NOT DETECTED; SARS-CoV-2 -RESP PCR PANEL NOT DETECTED
[2023-05-06 19:30] VITALS: BP 155/83; O2SAT 94
== END 2023-05-06 19:29 | disposition home or self-care (01) ==
LOC: ED 13:58
DX: E86.0 Dehydration (principal); R53.81 Other malaise; I10 Essential (primary) hypertension; I25.2 Old myocardial infarction; E11.9 Type 2 diabetes mellitus without complications; E03.9 Hypothyroidism, unspecified; M19.90 Unspecified osteoarthritis, unspecified site; Z86.711 Personal history of pulmonary embolism; Z79.01 Long term (current) use of anticoagulants; Z79.899 Other long term (current) drug therapy
CPT/HCPCS: 36415; 80053; 83690; 84484; 85025; 87633; 93005; 96360; 99283

== ENCOUNTER 2023-06-02 10:36 | Outpatient (CLI) | payer MEDICARE, OTHER ==
--- NOTE | 2023-06-02 11:38 | Ultrasound Report ---
PROCEDURE: Duplex Ext Veins Right INDICATIONS: EDEMA TECHNIQUE: Real-time imaging, as well as color and pulse Doppler interrogation, were performed of the lower extr emity deep veins from the inguinal ligament to the popliteal fossa. Attempted visualization of the ca lf veins was performed. COMPARISON: None. FINDINGS: The deep veins are normally compressible, and free of intraluminal thrombus. Color and pu lse Doppler demonstrate normal phasic intraluminal flow. There is normal augmentation response to di stal compression maneuver. IMPRESSION: No evidence acute DVT, right lower extremity. Reviewed by: Kyle Santana MD on 06/02/2023 11:37 AM PDT Approved by: Kyle Santana MD on 06/02/2023 11:37 AM PDT Station ID: [id number]
== END 2023-06-02 10:37 | disposition home or self-care (01) ==
LOC: DI 10:36
PROVIDERS: ATTEND Internal Medicine
DX: R60.9 Edema, unspecified (principal)